=== PATIENT | female | born 1955 | race Caucasian/White ===

== ENCOUNTER → 2017-12-06 | Outpatient (CLI) | payer BC | LOC: M WUC 09:46 | DX: J44.1 Chronic obstructive pulmonary disease with (acute) exacerbation (principal) | CPT/HCPCS: 71046 ==

== ENCOUNTER 2018-03-01 11:26 | Inpatient (IN) | payer BC ==
[2018-03-01 12:15] LABS: ABG BASE EXCESS 2.9 (-2.0-2.0); ABG HCO3 28.2 MEQ/L (22.0-26.0); ABG O2 SATURATION 96.5 % (95.0-99.0); ABG PARTIAL PRESSURE CO2 45.3 mmHg (35.0-45.0); ABG PARTIAL PRESSURE O2 84.9 mmHg (75.0-100.0); ABG TOTAL CO2 29.6 MEQ/L (23.0-31.0); ABG pH (ARTERIAL) 7.412 UNITS (7.350-7.450)
[2018-03-01] MEDS: IPRATROPIUM 0.5MG/ALBUTEROL 2.5MG INH SOL UD 3ML (DUONEB)(J7620) NEB ×2 (12:15→19:55)
[2018-03-01] MEDS: ALBUTEROL SULFATE 2.5 MG/0.5 ML INH NEB SOLN INH ×2 (12:15→13:56)
[2018-03-01] MEDS: methylPREDNISolone INJ 125 MG/2 ML VIAL (J2930) IV ×2 (12:17→20:03)
[2018-03-01 12:36] LABS: BASO % 0.3 % (0.0-1.0); EOS % 0.1 % (0.0-3.0); HEMATOCRIT 47.4 % (36.0-47.0); HEMOGLOBIN 16.3 g/dl (12.0-15.5); IMMATURE GRANULOCYTE % 0.5 % (0-3.0); LYMPH # 1.1 10^3/uL (1.5-4.5); LYMPH % 11.4 % (24.0-44.0); MEAN CORPUSCULAR HEMOGLOBIN 29.9 pg (27.0-33.0); MEAN CORPUSCULAR HGB CONC 34.4 g/dl (32.0-36.5); MEAN CORPUSCULAR VOLUME 86.8 fl (80.0-96.0); MONO # 0.3 10^3/uL (0.0-0.8); MONO % 2.7 % (0.0-5.0); NEUTROPHILS # 8.2 10^3/uL (1.8-7.7); PLATELET COUNT, AUTOMATED 383 10^3/uL (150-450); RED BLOOD COUNT 5.46 10^6/uL (4.00-5.40); RED CELL DISTRIBUTION WIDTH 13.5 % (11.5-14.5); WHITE BLOOD COUNT 9.6 10^3/uL (4.0-10.0)
[2018-03-01 13:11] LABS: LACTIC ACID SEPSIS PROTOCOL 1.7 MMOL/L (0.4-2.0)
[2018-03-01 13:11] LABS: ALBUMIN 3.9 GM/DL (3.2-5.2); ALBUMIN/GLOBULIN RATIO 0.83 (1.00-1.93); ALKALINE PHOSPHATASE 64 U/L (45-117); ALT/SGPT 34 U/L (12-78); ANION GAP 7 MEQ/L (8-16); AST/SGOT 26 U/L (7-37); BILIRUBIN,DIRECT < 0.1 MG/DL (0.0-0.2); BILIRUBIN,TOTAL 0.3 MG/DL (0.2-1.0); BLOOD UREA NITROGEN 13 MG/DL (7-18); CALCIUM LEVEL 9.6 MG/DL (8.8-10.2); CARBON DIOXIDE LEVEL 30 MEQ/L (21-32); CHLORIDE LEVEL 99 MEQ/L (98-107); CPK CREATINE PHOSPHOKINASE 164 U/L (26-192); CREATININE FOR GFR 0.71 MG/DL (0.55-1.30); GLOMERULAR FILTRATION RATE > 60.0 (>45); GLUCOSE, FASTING 116 MG/DL (70-100); POTASSIUM SERUM 3.8 MEQ/L (3.5-5.1); SODIUM LEVEL 136 MEQ/L (136-145); TOTAL PROTEIN 8.6 GM/DL (6.4-8.2); TROPONIN I < 0.02 NG/ML (< 0.10)
[2018-03-01 13:16] LABS: CK-MB VALUE MASS 5.8 NG/ML (<3.6); MB/CK RELATIVE INDEX 3.53 (< OR =4); NT-PRO BNP 193 PG/ML (<125); THYROID STIMULATING HORMONE 0.717 uIU/ML (0.358-3.740)
[2018-03-01] MEDS ORDERED: ISOVUE-370 76% 100ML VIAL (Q9967) As Ordered (13:22)
[2018-03-01] MEDS ORDERED: BISACODYL 5 MG TAB PO (15:15)
[2018-03-01] MEDS: NS 1,000 ML IV (17:00)
[2018-03-01] MEDS: DOXYCYCLINE HYCLATE 100 MG in D5W MINI-BAG PLUS 100 ML IV (17:00)
[2018-03-01] MEDS: PANTOPRAZOLE 40MG TAB (PROTONIX) PO (17:02)
[2018-03-01] MEDS: ENOXAPARIN 40 MG/0.4 ML SYRINGE (J1650) SC (20:04)
[2018-03-01] MEDS ORDERED: NICOTINE 14 MG/24 HR TRANSDERMAL TD (20:30)
[2018-03-02] MEDS: IPRATROPIUM 0.5MG/ALBUTEROL 2.5MG INH SOL UD 3ML (DUONEB)(J7620) NEB ×2 (01:41→07:32)
[2018-03-02] MEDS: DOXYCYCLINE HYCLATE 100 MG in D5W MINI-BAG PLUS 100 ML IV ×2 (03:18→16:49)
[2018-03-02] MEDS: methylPREDNISolone INJ 125 MG/2 ML VIAL (J2930) IV ×4 (03:18→23:02)
[2018-03-02 05:30] LABS: INFLUENZA A AMPLIFICATION NEGATIVE (NEGATIVE); INFLUENZA B AMPLIFICATION NEGATIVE (NEGATIVE)
[2018-03-02 05:41] LABS: BASO % 0.1 % (0.0-1.0); HEMATOCRIT 40.1 % (36.0-47.0); IMMATURE GRANULOCYTE % 0.6 % (0-3.0); LYMPH # 0.9 10^3/uL (1.5-4.5); LYMPH % 13.3 % (24.0-44.0); MEAN CORPUSCULAR HEMOGLOBIN 29.5 pg (27.0-33.0); MEAN CORPUSCULAR HGB CONC 33.4 g/dl (32.0-36.5); MEAN CORPUSCULAR VOLUME 88.3 fl (80.0-96.0); MONO # 0.3 10^3/uL (0.0-0.8); MONO % 4.6 % (0.0-5.0); NEUTROPHILS # 5.7 10^3/uL (1.8-7.7); NEUTROPHILS % 81.4 % (36.0-66.0); PLATELET COUNT, AUTOMATED 320 10^3/uL (150-450); RED BLOOD COUNT 4.54 10^6/uL (4.00-5.40); RED CELL DISTRIBUTION WIDTH 13.6 % (11.5-14.5); WHITE BLOOD COUNT 6.9 10^3/uL (4.0-10.0)
[2018-03-02 05:45] LABS: HEMOGLOBIN 13.4 g/dl (12.0-15.5)
[2018-03-02 05:57] LABS: ANION GAP 6 MEQ/L (8-16); BLOOD UREA NITROGEN 13 MG/DL (7-18); CALCIUM LEVEL 8.3 MG/DL (8.8-10.2); CARBON DIOXIDE LEVEL 31 MEQ/L (21-32); CHLORIDE LEVEL 105 MEQ/L (98-107); CREATININE FOR GFR 0.61 MG/DL (0.55-1.30); GLOMERULAR FILTRATION RATE > 60.0 (>45); GLUCOSE, FASTING 151 MG/DL (70-100); POTASSIUM SERUM 4.2 MEQ/L (3.5-5.1); SODIUM LEVEL 142 MEQ/L (136-145)
[2018-03-02] MEDS: NICOTINE 14 MG/24 HR TRANSDERMAL TD (09:00)
[2018-03-02] MEDS: BUDESONIDE 180MCG INHALER (PULMICORT FLEXHALER) INH (09:00)
[2018-03-02] MEDS: PANTOPRAZOLE 40MG TAB (PROTONIX) PO (09:05)
[2018-03-02] MEDS: amLODIPine 10 MG TAB PO (09:05)
[2018-03-02] MEDS: HYDROXYCHLOROQUINE 200 MG TAB PO (09:05)
[2018-03-02] MEDS: ALBUTEROL SULFATE 2.5 MG/0.5 ML INH NEB SOLN NEB (09:47)
[2018-03-02] MEDS: CETIRIZINE (ZyrTEC) 10 MG TAB PO (11:30)
[2018-03-02] MEDS: guaiFENesin ER 600 MG TAB PO ×2 (11:59→21:01)
[2018-03-02] MEDS: NICOTINE POLACRILEX 2 MG GUM PO (12:00)
[2018-03-02] MEDS: ACETAMINOPHEN 500 MG TAB PO (12:00)
[2018-03-02] MEDS: ALPRAZolam 0.25 MG TAB PO ×2 (12:04→21:01)
[2018-03-02] MEDS: LEVALBUTEROL 1.25 MG/0.5 ML CONCENTRATE NEB INH ×5 (12:06→23:14)
[2018-03-02] MEDS: TIOTROPIUM INHALER/CAPSULE (SPIRIVA) INH (16:29)
[2018-03-02] MEDS: ENOXAPARIN 40 MG/0.4 ML SYRINGE (J1650) SC (21:01)
[2018-03-03] MEDS: BUDESONIDE 180MCG INHALER (PULMICORT FLEXHALER) INH ×3 (00:49→21:20)
[2018-03-03] MEDS: DOXYCYCLINE HYCLATE 100 MG in D5W MINI-BAG PLUS 100 ML IV ×2 (04:03→15:19)
[2018-03-03] MEDS: ALPRAZolam 0.25 MG TAB PO ×5 (04:05→20:09)
[2018-03-03] MEDS: LEVALBUTEROL 1.25 MG/0.5 ML CONCENTRATE NEB INH ×6 (04:29→23:30)
[2018-03-03] MEDS: methylPREDNISolone INJ 125 MG/2 ML VIAL (J2930) IV ×4 (05:27→23:12)
[2018-03-03] MEDS: TIOTROPIUM INHALER/CAPSULE (SPIRIVA) INH (07:53)
[2018-03-03 08:01] LABS: HEMATOCRIT 39.6 % (36.0-47.0); HEMOGLOBIN 13.4 g/dl (12.0-15.5); MEAN CORPUSCULAR HEMOGLOBIN 29.8 pg (27.0-33.0); MEAN CORPUSCULAR HGB CONC 33.8 g/dl (32.0-36.5); MEAN CORPUSCULAR VOLUME 88.2 fl (80.0-96.0); PLATELET COUNT, AUTOMATED 359 10^3/uL (150-450); RED BLOOD COUNT 4.49 10^6/uL (4.00-5.40); RED CELL DISTRIBUTION WIDTH 13.8 % (11.5-14.5); WHITE BLOOD COUNT 13.3 10^3/uL (4.0-10.0)
[2018-03-03 08:21] LABS: ANION GAP 6 MEQ/L (8-16); BLOOD UREA NITROGEN 20 MG/DL (7-18); CALCIUM LEVEL 8.8 MG/DL (8.8-10.2); CARBON DIOXIDE LEVEL 31 MEQ/L (21-32); CHLORIDE LEVEL 106 MEQ/L (98-107); CPK CREATINE PHOSPHOKINASE 157 U/L (26-192); CREATININE FOR GFR 0.67 MG/DL (0.55-1.30); GLOMERULAR FILTRATION RATE > 60.0 (>45); GLUCOSE, FASTING 131 MG/DL (70-100); POTASSIUM SERUM 4.2 MEQ/L (3.5-5.1); SODIUM LEVEL 143 MEQ/L (136-145); TROPONIN I < 0.02 NG/ML (< 0.10)
[2018-03-03 08:22] LABS: CK-MB VALUE MASS 7.2 NG/ML (<3.6); MB/CK RELATIVE INDEX 4.58 (< OR =4); NT-PRO BNP 325 PG/ML (<125)
[2018-03-03] MEDS: NICOTINE 14 MG/24 HR TRANSDERMAL TD (09:00)
[2018-03-03] MEDS: amLODIPine 10 MG TAB PO (09:00)
[2018-03-03] MEDS: PANTOPRAZOLE 40MG TAB (PROTONIX) PO (09:00)
[2018-03-03] MEDS: HYDROXYCHLOROQUINE 200 MG TAB PO (09:01)
[2018-03-03] MEDS: guaiFENesin ER 600 MG TAB PO ×2 (09:01→20:09)
[2018-03-03] MEDS: CETIRIZINE (ZyrTEC) 10 MG TAB PO (09:01)
[2018-03-03] MEDS: OXYMETAZOLINE NASAL SPRAY (AFRIN) ×2 (11:44→20:10)
[2018-03-03] MEDS: ENOXAPARIN 40 MG/0.4 ML SYRINGE (J1650) SC (20:09)
[2018-03-04] MEDS: ALPRAZolam 0.25 MG TAB PO ×3 (00:14→21:07)
[2018-03-04] MEDS: LEVALBUTEROL 1.25 MG/0.5 ML CONCENTRATE NEB INH ×5 (04:00→20:08)
[2018-03-04] MEDS: DOXYCYCLINE HYCLATE 100 MG in D5W MINI-BAG PLUS 100 ML IV (04:26)
[2018-03-04] MEDS: methylPREDNISolone INJ 125 MG/2 ML VIAL (J2930) IV ×4 (06:06→23:33)
[2018-03-04] MEDS: TIOTROPIUM INHALER/CAPSULE (SPIRIVA) INH (08:10)
[2018-03-04] MEDS: BUDESONIDE 180MCG INHALER (PULMICORT FLEXHALER) INH ×2 (08:11→20:13)
[2018-03-04] MEDS: PANTOPRAZOLE 40MG TAB (PROTONIX) PO (09:04)
[2018-03-04] MEDS: HYDROXYCHLOROQUINE 200 MG TAB PO (09:04)
[2018-03-04] MEDS: guaiFENesin ER 600 MG TAB PO ×2 (09:04→21:08)
[2018-03-04] MEDS: CETIRIZINE (ZyrTEC) 10 MG TAB PO (09:04)
[2018-03-04] MEDS: amLODIPine 10 MG TAB PO (09:04)
[2018-03-04] MEDS: NICOTINE 14 MG/24 HR TRANSDERMAL TD (09:05)
[2018-03-04] MEDS: OXYMETAZOLINE NASAL SPRAY (AFRIN) ×2 (09:06→21:09)
[2018-03-04] MEDS: ENOXAPARIN 40 MG/0.4 ML SYRINGE (J1650) SC (21:07)
[2018-03-04] MEDS: SODIUM CHLORIDE NASAL 0.65% SPRAY BTL (OCEAN) (21:08)
[2018-03-04] MEDS: DOXYCYCLINE HYCLATE 100 MG TAB PO (21:08)
[2018-03-05] MEDS: LEVALBUTEROL 1.25 MG/0.5 ML CONCENTRATE NEB INH ×7 (00:15→23:19)
[2018-03-05] MEDS: ALPRAZolam 0.25 MG TAB PO ×5 (01:10→20:46)
[2018-03-05] MEDS: methylPREDNISolone INJ 125 MG/2 ML VIAL (J2930) IV ×4 (05:06→20:05)
[2018-03-05] MEDS: TIOTROPIUM INHALER/CAPSULE (SPIRIVA) INH (08:07)
[2018-03-05] MEDS: BUDESONIDE 180MCG INHALER (PULMICORT FLEXHALER) INH ×2 (08:08→20:09)
[2018-03-05] MEDS: NICOTINE 14 MG/24 HR TRANSDERMAL TD (08:10)
[2018-03-05] MEDS: PANTOPRAZOLE 40MG TAB (PROTONIX) PO (08:12)
[2018-03-05] MEDS: amLODIPine 10 MG TAB PO (08:12)
[2018-03-05] MEDS: guaiFENesin ER 600 MG TAB PO ×2 (08:12→20:05)
[2018-03-05] MEDS: DOXYCYCLINE HYCLATE 100 MG TAB PO ×2 (08:13→20:05)
[2018-03-05] MEDS: CETIRIZINE (ZyrTEC) 10 MG TAB PO (08:13)
[2018-03-05] MEDS: LEVALBUTEROL 1.25 MG/0.5 ML CONCENTRATE NEB NEB (08:20)
[2018-03-05] MEDS: HYDROXYCHLOROQUINE 200 MG TAB PO (08:27)
[2018-03-05] MEDS: OXYMETAZOLINE NASAL SPRAY (AFRIN) ×2 (08:27→20:06)
[2018-03-05 08:54] LABS: NT-PRO BNP 287 PG/ML (<125)
[2018-03-05] MEDS: IPRATROPIUM 0.02% SOLN 0.5MG/2.5 ML NEB INH ×4 (11:47→23:19)
[2018-03-05] MEDS: ENOXAPARIN 40 MG/0.4 ML SYRINGE (J1650) SC (20:06)
[2018-03-05] MEDS: SODIUM CHLORIDE NASAL 0.65% SPRAY BTL (OCEAN) (20:06)
[2018-03-05] MEDS: ACETAMINOPHEN 500 MG TAB PO (23:21)
[2018-03-06] MEDS: methylPREDNISolone INJ 125 MG/2 ML VIAL (J2930) IV ×4 (01:47→20:38)
[2018-03-06] MEDS: IPRATROPIUM 0.02% SOLN 0.5MG/2.5 ML NEB INH ×6 (03:38→23:44)
[2018-03-06] MEDS: LEVALBUTEROL 1.25 MG/0.5 ML CONCENTRATE NEB INH ×7 (03:38→23:44)
[2018-03-06] MEDS: BUDESONIDE 180MCG INHALER (PULMICORT FLEXHALER) INH ×2 (07:44→21:25)
[2018-03-06] MEDS: TIOTROPIUM INHALER/CAPSULE (SPIRIVA) INH (07:55)
[2018-03-06] MEDS: CETIRIZINE (ZyrTEC) 10 MG TAB PO (09:01)
[2018-03-06] MEDS: NICOTINE 14 MG/24 HR TRANSDERMAL TD (09:01)
[2018-03-06] MEDS: guaiFENesin ER 600 MG TAB PO ×2 (09:01→20:39)
[2018-03-06] MEDS: amLODIPine 10 MG TAB PO (09:03)
[2018-03-06] MEDS: PANTOPRAZOLE 40MG TAB (PROTONIX) PO (09:04)
[2018-03-06] MEDS: DOXYCYCLINE HYCLATE 100 MG TAB PO ×2 (09:04→20:39)
[2018-03-06] MEDS: OXYMETAZOLINE NASAL SPRAY (AFRIN) ×2 (09:04→20:40)
[2018-03-06] MEDS: HYDROXYCHLOROQUINE 200 MG TAB PO (09:04)
[2018-03-06] MEDS: ALPRAZolam 0.25 MG TAB PO ×4 (09:19→22:02)
[2018-03-06 09:23] LABS: BASO # 0.1 10^3/uL (0.0-0.2); BASO % 0.5 % (0.0-1.0); HEMATOCRIT 46.1 % (36.0-47.0); HEMOGLOBIN 15.1 g/dl (12.0-15.5); IMMATURE GRANULOCYTE % 3.8 % (0-3.0); LYMPH % 6.8 % (24.0-44.0); MEAN CORPUSCULAR HGB CONC 32.8 g/dl (32.0-36.5); MEAN CORPUSCULAR VOLUME 91.7 fl (80.0-96.0); MONO # 0.8 10^3/uL (0.0-0.8); MONO % 5.3 % (0.0-5.0); NEUTROPHILS # 12.2 10^3/uL (1.8-7.7); NEUTROPHILS % 83.6 % (36.0-66.0); PLATELET COUNT, AUTOMATED 469 10^3/uL (150-450); RED BLOOD COUNT 5.03 10^6/uL (4.00-5.40); RED CELL DISTRIBUTION WIDTH 13.9 % (11.5-14.5); WHITE BLOOD COUNT 14.6 10^3/uL (4.0-10.0)
[2018-03-06 09:58] LABS: ANION GAP 5 MEQ/L (8-16); BLOOD UREA NITROGEN 22 MG/DL (7-18); CARBON DIOXIDE LEVEL 37 MEQ/L (21-32); CHLORIDE LEVEL 102 MEQ/L (98-107); CREATININE FOR GFR 0.66 MG/DL (0.55-1.30); GLOMERULAR FILTRATION RATE > 60.0 (>45); GLUCOSE, FASTING 134 MG/DL (70-100); POTASSIUM SERUM 4.6 MEQ/L (3.5-5.1); SODIUM LEVEL 144 MEQ/L (136-145)
[2018-03-06] MEDS: NICOTINE POLACRILEX 2 MG GUM PO (11:07)
[2018-03-06] MEDS: SODIUM CHLORIDE NASAL 0.65% SPRAY BTL (OCEAN) (20:39)
[2018-03-06] MEDS: ENOXAPARIN 40 MG/0.4 ML SYRINGE (J1650) SC (20:39)
[2018-03-07] MEDS: ALPRAZolam 0.25 MG TAB PO ×4 (02:12→20:26)
[2018-03-07] MEDS: methylPREDNISolone INJ 125 MG/2 ML VIAL (J2930) IV ×4 (02:12→20:19)
[2018-03-07] MEDS: LEVALBUTEROL 1.25 MG/0.5 ML CONCENTRATE NEB INH ×7 (02:18→21:46)
[2018-03-07] MEDS: IPRATROPIUM 0.02% SOLN 0.5MG/2.5 ML NEB INH ×7 (02:18→21:46)
[2018-03-07 06:14] LABS: BASO % 0.3 % (0.0-1.0); HEMATOCRIT 43.2 % (36.0-47.0); HEMOGLOBIN 14.2 g/dl (12.0-15.5); IMMATURE GRANULOCYTE % 2.9 % (0-3.0); LYMPH # 0.8 10^3/uL (1.5-4.5); LYMPH % 5.5 % (24.0-44.0); MEAN CORPUSCULAR HEMOGLOBIN 29.5 pg (27.0-33.0); MEAN CORPUSCULAR HGB CONC 32.9 g/dl (32.0-36.5); MEAN CORPUSCULAR VOLUME 89.6 fl (80.0-96.0); MONO # 0.6 10^3/uL (0.0-0.8); MONO % 4.1 % (0.0-5.0); NEUTROPHILS # 13.2 10^3/uL (1.8-7.7); NEUTROPHILS % 87.2 % (36.0-66.0); PLATELET COUNT, AUTOMATED 449 10^3/uL (150-450); RED BLOOD COUNT 4.82 10^6/uL (4.00-5.40); RED CELL DISTRIBUTION WIDTH 13.8 % (11.5-14.5); WHITE BLOOD COUNT 15.2 10^3/uL (4.0-10.0)
[2018-03-07] MEDS: BUDESONIDE 180MCG INHALER (PULMICORT FLEXHALER) INH ×2 (08:20→21:57)
[2018-03-07] MEDS: TIOTROPIUM INHALER/CAPSULE (SPIRIVA) INH (08:20)
[2018-03-07] MEDS: PANTOPRAZOLE 40MG TAB (PROTONIX) PO (09:32)
[2018-03-07] MEDS: guaiFENesin ER 600 MG TAB PO ×2 (09:32→20:19)
[2018-03-07] MEDS: amLODIPine 10 MG TAB PO (09:32)
[2018-03-07] MEDS: HYDROXYCHLOROQUINE 200 MG TAB PO (09:33)
[2018-03-07] MEDS: CETIRIZINE (ZyrTEC) 10 MG TAB PO (09:33)
[2018-03-07] MEDS: DOXYCYCLINE HYCLATE 100 MG TAB PO ×2 (09:33→20:19)
[2018-03-07] MEDS: OXYMETAZOLINE NASAL SPRAY (AFRIN) ×2 (09:34→20:20)
[2018-03-07] MEDS: NICOTINE 14 MG/24 HR TRANSDERMAL TD (09:35)
[2018-03-07] MEDS ORDERED: CHLORASEPTIC SPRAY MT (12:00)
[2018-03-07] MEDS: CEPACOL LOZENGE PO (14:10)
[2018-03-07] MEDS: ENOXAPARIN 40 MG/0.4 ML SYRINGE (J1650) SC (20:19)
[2018-03-08] MEDS: IPRATROPIUM 0.02% SOLN 0.5MG/2.5 ML NEB INH ×8 (00:06→22:40)
[2018-03-08] MEDS: LEVALBUTEROL 1.25 MG/0.5 ML CONCENTRATE NEB INH ×8 (00:06→22:40)
[2018-03-08] MEDS: methylPREDNISolone INJ 125 MG/2 ML VIAL (J2930) IV ×4 (01:13→20:09)
[2018-03-08] MEDS: ALPRAZolam 0.25 MG TAB PO ×2 (01:13→05:33)
[2018-03-08] MEDS: SODIUM CHLORIDE NASAL 0.65% SPRAY BTL (OCEAN) (02:13)
[2018-03-08 06:20] LABS: BASO # 0.1 10^3/uL (0.0-0.2); BASO % 0.3 % (0.0-1.0); HEMATOCRIT 42.4 % (36.0-47.0); IMMATURE GRANULOCYTE % 2.4 % (0-3.0); LYMPH # 0.8 10^3/uL (1.5-4.5); LYMPH % 3.8 % (24.0-44.0); MONO # 0.9 10^3/uL (0.0-0.8); MONO % 4.2 % (0.0-5.0); NEUTROPHILS # 18.3 10^3/uL (1.8-7.7); NEUTROPHILS % 89.3 % (36.0-66.0); PLATELET COUNT, AUTOMATED 424 10^3/uL (150-450); RED BLOOD COUNT 4.66 10^6/uL (4.00-5.40); RED CELL DISTRIBUTION WIDTH 13.8 % (11.5-14.5); WHITE BLOOD COUNT 20.5 10^3/uL (4.0-10.0)
[2018-03-08 08:05] LABS: ANION GAP 5 MEQ/L (8-16); BLOOD UREA NITROGEN 22 MG/DL (7-18); CALCIUM LEVEL 8.6 MG/DL (8.8-10.2); CARBON DIOXIDE LEVEL 37 MEQ/L (21-32); CHLORIDE LEVEL 103 MEQ/L (98-107); GLOMERULAR FILTRATION RATE > 60.0 (>45); GLUCOSE, FASTING 152 MG/DL (70-100); POTASSIUM SERUM 4.2 MEQ/L (3.5-5.1); SODIUM LEVEL 145 MEQ/L (136-145)
[2018-03-08] MEDS: TIOTROPIUM INHALER/CAPSULE (SPIRIVA) INH (08:13)
[2018-03-08] MEDS: ADVAIR HFA 230/21MCG INHALER INH ×2 (08:14→22:40)
[2018-03-08] MEDS: DOXYCYCLINE HYCLATE 100 MG TAB PO ×2 (09:14→20:09)
[2018-03-08] MEDS: amLODIPine 10 MG TAB PO (09:14)
[2018-03-08] MEDS: guaiFENesin ER 600 MG TAB PO ×2 (09:14→20:09)
[2018-03-08] MEDS: NICOTINE 14 MG/24 HR TRANSDERMAL TD (09:15)
[2018-03-08] MEDS: PANTOPRAZOLE 40MG TAB (PROTONIX) PO (09:15)
[2018-03-08] MEDS: OXYMETAZOLINE NASAL SPRAY (AFRIN) (09:15)
[2018-03-08] MEDS: HYDROXYCHLOROQUINE 200 MG TAB PO (09:15)
[2018-03-08] MEDS: CETIRIZINE (ZyrTEC) 10 MG TAB PO (09:15)
[2018-03-08] MEDS: LORazepam 0.5 MG TAB PO ×2 (10:02→20:09)
[2018-03-08] MEDS: NICOTINE POLACRILEX 2 MG GUM PO (18:41)
[2018-03-08] MEDS: ENOXAPARIN 40 MG/0.4 ML SYRINGE (J1650) SC (20:10)
[2018-03-08] MEDS: MIRALAX *UNIT DOSE* 17GM PACKET PO (21:42)
[2018-03-09] MEDS: methylPREDNISolone INJ 125 MG/2 ML VIAL (J2930) IV ×3 (01:13→19:59)
[2018-03-09] MEDS: IPRATROPIUM 0.02% SOLN 0.5MG/2.5 ML NEB INH (03:45)
[2018-03-09] MEDS: LEVALBUTEROL 1.25 MG/0.5 ML CONCENTRATE NEB INH (03:46)
[2018-03-09] MEDS: LORazepam 0.5 MG TAB PO ×2 (04:19→19:59)
[2018-03-09 06:10] LABS: BASO # 0.1 10^3/uL (0.0-0.2); BASO % 0.2 % (0.0-1.0); HEMATOCRIT 40.6 % (36.0-47.0); HEMOGLOBIN 13.6 g/dl (12.0-15.5); IMMATURE GRANULOCYTE % 2.4 % (0-3.0); LYMPH # 0.7 10^3/uL (1.5-4.5); MEAN CORPUSCULAR HGB CONC 33.5 g/dl (32.0-36.5); MEAN CORPUSCULAR VOLUME 89.6 fl (80.0-96.0); MONO # 1.1 10^3/uL (0.0-0.8); MONO % 4.8 % (0.0-5.0); NEUTROPHILS # 19.8 10^3/uL (1.8-7.7); NEUTROPHILS % 89.6 % (36.0-66.0); PLATELET COUNT, AUTOMATED 370 10^3/uL (150-450); RED BLOOD COUNT 4.53 10^6/uL (4.00-5.40); RED CELL DISTRIBUTION WIDTH 13.6 % (11.5-14.5); WHITE BLOOD COUNT 22.1 10^3/uL (4.0-10.0)
[2018-03-09 06:35] LABS: ANION GAP 6 MEQ/L (8-16); BLOOD UREA NITROGEN 24 MG/DL (7-18); CALCIUM LEVEL 8.6 MG/DL (8.8-10.2); CARBON DIOXIDE LEVEL 37 MEQ/L (21-32); CHLORIDE LEVEL 101 MEQ/L (98-107); CREATININE FOR GFR 0.52 MG/DL (0.55-1.30); GLOMERULAR FILTRATION RATE > 60.0 (>45); GLUCOSE, FASTING 143 MG/DL (70-100); POTASSIUM SERUM 4.1 MEQ/L (3.5-5.1); SODIUM LEVEL 144 MEQ/L (136-145)
[2018-03-09] MEDS: PANTOPRAZOLE 40MG TAB (PROTONIX) PO (08:17)
[2018-03-09] MEDS: NICOTINE 14 MG/24 HR TRANSDERMAL TD (08:17)
[2018-03-09] MEDS: guaiFENesin ER 600 MG TAB PO ×2 (08:17→19:58)
[2018-03-09] MEDS: MIRALAX *UNIT DOSE* 17GM PACKET PO (08:17)
[2018-03-09] MEDS: CETIRIZINE (ZyrTEC) 10 MG TAB PO (08:17)
[2018-03-09] MEDS: HYDROXYCHLOROQUINE 200 MG TAB PO (08:18)
[2018-03-09] MEDS: amLODIPine 10 MG TAB PO (08:18)
[2018-03-09] MEDS: DOXYCYCLINE HYCLATE 100 MG TAB PO (08:18)
[2018-03-09] MEDS: ADVAIR HFA 230/21MCG INHALER INH ×2 (10:07→19:45)
[2018-03-09] MEDS: TIOTROPIUM INHALER/CAPSULE (SPIRIVA) INH (10:08)
[2018-03-09 10:22] LABS: ABG BASE EXCESS 10.5 (-2.0-2.0); ABG HCO3 35.6 MEQ/L (22.0-26.0); ABG O2 SATURATION 95.6 % (95.0-99.0); ABG PARTIAL PRESSURE CO2 48.7 mmHg (35.0-45.0); ABG PARTIAL PRESSURE O2 73.6 mmHg (75.0-100.0); ABG STANDARD HCO3 34.2 MEQ/L (22.0-26.0); ABG TOTAL CO2 37.1 MEQ/L (23.0-31.0); ABG pH (ARTERIAL) 7.482 UNITS (7.350-7.450)
[2018-03-09] MEDS: IPRATROPIUM 0.5MG/ALBUTEROL 2.5MG INH SOL UD 3ML (DUONEB)(J7620) NEB ×3 (13:54→19:43)
[2018-03-09] MEDS: NICOTINE POLACRILEX 2 MG GUM PO (14:57)
[2018-03-09] MEDS: ENOXAPARIN 40 MG/0.4 ML SYRINGE (J1650) SC (19:59)
[2018-03-10 00:06] LABS: M003-IGE ASPERGILLUS fumigatus <0.10 kU/L (Class 0)
[2018-03-10] MEDS: IPRATROPIUM 0.5MG/ALBUTEROL 2.5MG INH SOL UD 3ML (DUONEB)(J7620) NEB ×4 (01:08→20:00)
[2018-03-10] MEDS: ACETAMINOPHEN 500 MG TAB PO (01:42)
[2018-03-10 06:19] LABS: BASO % 0.2 % (0.0-1.0); HEMATOCRIT 40.4 % (36.0-47.0); HEMOGLOBIN 13.2 g/dl (12.0-15.5); IMMATURE GRANULOCYTE % 2.8 % (0-3.0); LYMPH % 4.5 % (24.0-44.0); MEAN CORPUSCULAR HEMOGLOBIN 29.1 pg (27.0-33.0); MEAN CORPUSCULAR HGB CONC 32.7 g/dl (32.0-36.5); MEAN CORPUSCULAR VOLUME 89.2 fl (80.0-96.0); MONO # 1.5 10^3/uL (0.0-0.8); MONO % 6.9 % (0.0-5.0); NEUTROPHILS # 18.9 10^3/uL (1.8-7.7); NEUTROPHILS % 85.6 % (36.0-66.0); PLATELET COUNT, AUTOMATED 369 10^3/uL (150-450); RED BLOOD COUNT 4.53 10^6/uL (4.00-5.40); RED CELL DISTRIBUTION WIDTH 13.8 % (11.5-14.5); WHITE BLOOD COUNT 22.1 10^3/uL (4.0-10.0)
[2018-03-10 06:34] LABS: ANION GAP 6 MEQ/L (8-16); BLOOD UREA NITROGEN 19 MG/DL (7-18); CALCIUM LEVEL 8.3 MG/DL (8.8-10.2); CARBON DIOXIDE LEVEL 38 MEQ/L (21-32); CHLORIDE LEVEL 99 MEQ/L (98-107); CREATININE FOR GFR 0.57 MG/DL (0.55-1.30); GLOMERULAR FILTRATION RATE > 60.0 (>45); GLUCOSE, FASTING 130 MG/DL (70-100); POTASSIUM SERUM 4.3 MEQ/L (3.5-5.1); SODIUM LEVEL 143 MEQ/L (136-145)
[2018-03-10] MEDS: TIOTROPIUM INHALER/CAPSULE (SPIRIVA) INH (07:44)
[2018-03-10] MEDS: ADVAIR HFA 230/21MCG INHALER INH ×2 (07:45→20:53)
[2018-03-10] MEDS: PANTOPRAZOLE 40MG TAB (PROTONIX) PO (08:35)
[2018-03-10] MEDS: HYDROXYCHLOROQUINE 200 MG TAB PO (08:35)
[2018-03-10] MEDS: predniSONE 20 MG TAB PO ×2 (08:36→20:57)
[2018-03-10] MEDS: guaiFENesin ER 600 MG TAB PO ×2 (08:36→20:57)
[2018-03-10] MEDS: amLODIPine 10 MG TAB PO (08:36)
[2018-03-10] MEDS: MIRALAX *UNIT DOSE* 17GM PACKET PO (08:36)
[2018-03-10] MEDS: CETIRIZINE (ZyrTEC) 10 MG TAB PO (08:36)
[2018-03-10] MEDS: NICOTINE 14 MG/24 HR TRANSDERMAL TD (08:36)
[2018-03-10] MEDS: NICOTINE POLACRILEX 2 MG GUM PO ×2 (08:59→12:38)
[2018-03-10] MEDS: LORazepam 0.5 MG TAB PO ×2 (11:13→20:58)
[2018-03-10] MEDS: LEVALBUTEROL 1.25 MG/0.5 ML CONCENTRATE NEB INH (15:31)
[2018-03-10] MEDS: ENOXAPARIN 40 MG/0.4 ML SYRINGE (J1650) SC (20:57)
[2018-03-10] MEDS ORDERED: NYSTATIN 500,000 U/5 ML SUSP UDC PO (22:45)
[2018-03-11] MEDS: IPRATROPIUM 0.5MG/ALBUTEROL 2.5MG INH SOL UD 3ML (DUONEB)(J7620) NEB ×4 (01:19→19:38)
[2018-03-11 06:03] LABS: ANION GAP 7 MEQ/L (8-16); BLOOD UREA NITROGEN 17 MG/DL (7-18); CALCIUM LEVEL 8.3 MG/DL (8.8-10.2); CARBON DIOXIDE LEVEL 33 MEQ/L (21-32); CHLORIDE LEVEL 100 MEQ/L (98-107); CREATININE FOR GFR 0.49 MG/DL (0.55-1.30); GLOMERULAR FILTRATION RATE > 60.0 (>45); GLUCOSE, FASTING 143 MG/DL (70-100); POTASSIUM SERUM 4.8 MEQ/L (3.5-5.1); SODIUM LEVEL 140 MEQ/L (136-145)
[2018-03-11 06:06] LABS: BASO % 0.2 % (0.0-1.0); EOS % 0.1 % (0.0-3.0); HEMOGLOBIN 13.4 g/dl (12.0-15.5); LYMPH # 0.9 10^3/uL (1.5-4.5); LYMPH % 4.5 % (24.0-44.0); MEAN CORPUSCULAR HEMOGLOBIN 29.7 pg (27.0-33.0); MEAN CORPUSCULAR HGB CONC 33.5 g/dl (32.0-36.5); MEAN CORPUSCULAR VOLUME 88.7 fl (80.0-96.0); MONO # 0.7 10^3/uL (0.0-0.8); MONO % 3.4 % (0.0-5.0); NEUTROPHILS # 17.6 10^3/uL (1.8-7.7); NEUTROPHILS % 89.8 % (36.0-66.0); PLATELET COUNT, AUTOMATED 287 10^3/uL (150-450); RED BLOOD COUNT 4.51 10^6/uL (4.00-5.40); RED CELL DISTRIBUTION WIDTH 13.7 % (11.5-14.5); WHITE BLOOD COUNT 19.6 10^3/uL (4.0-10.0)
[2018-03-11] MEDS: TIOTROPIUM INHALER/CAPSULE (SPIRIVA) INH (08:11)
[2018-03-11] MEDS: ADVAIR HFA 230/21MCG INHALER INH ×2 (08:11→20:28)
[2018-03-11] MEDS: guaiFENesin ER 600 MG TAB PO ×2 (08:45→20:17)
[2018-03-11] MEDS: predniSONE 20 MG TAB PO ×2 (08:45→20:17)
[2018-03-11] MEDS: CETIRIZINE (ZyrTEC) 10 MG TAB PO (08:45)
[2018-03-11] MEDS: amLODIPine 10 MG TAB PO (08:45)
[2018-03-11] MEDS: HYDROXYCHLOROQUINE 200 MG TAB PO (08:45)
[2018-03-11] MEDS: PANTOPRAZOLE 40MG TAB (PROTONIX) PO (08:45)
[2018-03-11] MEDS: NICOTINE 14 MG/24 HR TRANSDERMAL TD (08:46)
[2018-03-11] MEDS: MIRALAX *UNIT DOSE* 17GM PACKET PO ×2 (08:46→20:18)
[2018-03-11] MEDS: NYSTATIN 500,000 U/5 ML SUSP UDC SS ×4 (09:54→20:18)
[2018-03-11] MEDS: NICOTINE POLACRILEX 2 MG GUM PO ×2 (09:54→13:07)
[2018-03-11] MEDS: LORazepam 0.5 MG TAB PO (14:28)
[2018-03-11] MEDS: FUROSEMIDE 40 MG TAB PO (14:58)
[2018-03-11] MEDS: ENOXAPARIN 40 MG/0.4 ML SYRINGE (J1650) SC (20:18)
[2018-03-12] MEDS: IPRATROPIUM 0.5MG/ALBUTEROL 2.5MG INH SOL UD 3ML (DUONEB)(J7620) NEB ×4 (02:23→21:57)
[2018-03-12 06:22] LABS: ANION GAP 4 MEQ/L (8-16); BLOOD UREA NITROGEN 19 MG/DL (7-18); CALCIUM LEVEL 8.1 MG/DL (8.8-10.2); CARBON DIOXIDE LEVEL 38 MEQ/L (21-32); CHLORIDE LEVEL 101 MEQ/L (98-107); GLOMERULAR FILTRATION RATE > 60.0 (>45); GLUCOSE, FASTING 161 MG/DL (70-100); POTASSIUM SERUM 4.2 MEQ/L (3.5-5.1); SODIUM LEVEL 143 MEQ/L (136-145)
[2018-03-12] MEDS: ADVAIR HFA 230/21MCG INHALER INH ×2 (08:30→21:57)
[2018-03-12] MEDS: TIOTROPIUM INHALER/CAPSULE (SPIRIVA) INH (08:30)
[2018-03-12] MEDS: NYSTATIN 500,000 U/5 ML SUSP UDC SS ×4 (08:30→21:18)
[2018-03-12] MEDS: amLODIPine 10 MG TAB PO (08:31)
[2018-03-12] MEDS: NICOTINE 14 MG/24 HR TRANSDERMAL TD (08:31)
[2018-03-12] MEDS: guaiFENesin ER 600 MG TAB PO ×2 (08:32→21:18)
[2018-03-12] MEDS: CETIRIZINE (ZyrTEC) 10 MG TAB PO (08:32)
[2018-03-12] MEDS: FUROSEMIDE 40 MG TAB PO (08:32)
[2018-03-12] MEDS: HYDROXYCHLOROQUINE 200 MG TAB PO (08:32)
[2018-03-12] MEDS: PANTOPRAZOLE 40MG TAB (PROTONIX) PO (08:32)
[2018-03-12] MEDS: predniSONE 20 MG TAB PO (08:32)
[2018-03-12] MEDS: MIRALAX *UNIT DOSE* 17GM PACKET PO (09:04)
[2018-03-12] MEDS: NICOTINE POLACRILEX 2 MG GUM PO ×2 (10:10→14:59)
[2018-03-12] MEDS: ALPRAZolam 0.25 MG TAB PO (21:19)
[2018-03-12] MEDS: ENOXAPARIN 40 MG/0.4 ML SYRINGE (J1650) SC (21:19)
[2018-03-13] MEDS: ACETAMINOPHEN 500 MG TAB PO (01:07)
[2018-03-13] MEDS: IPRATROPIUM 0.5MG/ALBUTEROL 2.5MG INH SOL UD 3ML (DUONEB)(J7620) NEB ×3 (02:40→11:00)
[2018-03-13] MEDS: ALPRAZolam 0.25 MG TAB PO (05:06)
[2018-03-13 06:49] LABS: BASO # 0.1 10^3/uL (0.0-0.2); BASO % 0.2 % (0.0-1.0); EOS # 0.1 10^3/uL (0.0-0.50); EOS % 0.6 % (0.0-3.0); HEMATOCRIT 36.7 % (36.0-47.0); HEMOGLOBIN 12.3 g/dl (12.0-15.5); IMMATURE GRANULOCYTE % 2.2 % (0-3.0); LYMPH # 3.7 10^3/uL (1.5-4.5); LYMPH % 18.6 % (24.0-44.0); MEAN CORPUSCULAR HEMOGLOBIN 29.6 pg (27.0-33.0); MEAN CORPUSCULAR HGB CONC 33.5 g/dl (32.0-36.5); MEAN CORPUSCULAR VOLUME 88.2 fl (80.0-96.0); MONO # 1.8 10^3/uL (0.0-0.8); MONO % 9.2 % (0.0-5.0); NEUTROPHILS # 13.8 10^3/uL (1.8-7.7); NEUTROPHILS % 69.2 % (36.0-66.0); PLATELET COUNT, AUTOMATED 273 10^3/uL (150-450); RED BLOOD COUNT 4.16 10^6/uL (4.00-5.40); RED CELL DISTRIBUTION WIDTH 13.6 % (11.5-14.5)
[2018-03-13 07:06] LABS: ANION GAP 2 MEQ/L (8-16); BLOOD UREA NITROGEN 19 MG/DL (7-18); CALCIUM LEVEL 7.9 MG/DL (8.8-10.2); CARBON DIOXIDE LEVEL 39 MEQ/L (21-32); CHLORIDE LEVEL 101 MEQ/L (98-107); CREATININE FOR GFR 0.56 MG/DL (0.55-1.30); GLOMERULAR FILTRATION RATE > 60.0 (>45); GLUCOSE, FASTING 90 MG/DL (70-100); POTASSIUM SERUM 3.5 MEQ/L (3.5-5.1); SODIUM LEVEL 142 MEQ/L (136-145)
[2018-03-13] MEDS: TIOTROPIUM INHALER/CAPSULE (SPIRIVA) INH (08:00)
[2018-03-13] MEDS ORDERED: ALPRAZolam 0.25 MG TAB PO (08:30)
[2018-03-13] MEDS: ADVAIR HFA 230/21MCG INHALER INH (08:57)
[2018-03-13] MEDS: predniSONE 20 MG TAB PO (09:48)
[2018-03-13] MEDS: guaiFENesin ER 600 MG TAB PO (09:48)
[2018-03-13] MEDS: amLODIPine 10 MG TAB PO (09:49)
[2018-03-13] MEDS: NICOTINE POLACRILEX 2 MG GUM PO (09:49)
[2018-03-13] MEDS: NYSTATIN 500,000 U/5 ML SUSP UDC SS (09:49)
[2018-03-13] MEDS: PANTOPRAZOLE 40MG TAB (PROTONIX) PO (09:49)
[2018-03-13] MEDS: NICOTINE 14 MG/24 HR TRANSDERMAL TD (09:49)
[2018-03-13] MEDS: CETIRIZINE (ZyrTEC) 10 MG TAB PO (09:49)
[2018-03-13] MEDS: HYDROXYCHLOROQUINE 200 MG TAB PO (09:49)
[2018-03-13] MEDS: FUROSEMIDE 40 MG TAB PO (09:49)
== END 2018-03-13 11:20 | disposition home or self-care (01) | DRG 140 ==
LOC: M PED 03-12 16:02 → M ED 11:26 → M ED INP 15:02 → M MSPAV 16:44
DX: J44.1 Chronic obstructive pulmonary disease with (acute) exacerbation (principal); J96.01 Acute respiratory failure with hypoxia; I27.20 Pulmonary hypertension, unspecified; I11.0 Hypertensive heart disease with heart failure; I50.32 Chronic diastolic (congestive) heart failure; L94.8 Other specified localized connective tissue disorders; J32.9 Chronic sinusitis, unspecified; R19.7 Diarrhea, unspecified; F17.200 Nicotine dependence, unspecified, uncomplicated; I73.00 Raynaud's syndrome without gangrene; Z85.038 Personal history of other malignant neoplasm of large intestine; J02.9 Acute pharyngitis, unspecified; Z79.899 Other long term (current) drug therapy; Z79.52 Long term (current) use of systemic steroids

== ENCOUNTER → 2018-05-18 | Outpatient (CLI) | payer BC | LOC: M PLARAD 11:14 | DX: R91.1 Solitary pulmonary nodule (principal); Z85.038 Personal history of other malignant neoplasm of large intestine | CPT/HCPCS: 78815 ==

== ENCOUNTER → 2018-05-24 | Outpatient (REF) | payer BC ==
[2018-05-24 13:59] LABS: PLATELET COUNT, AUTOMATED 432 10^3/uL (150-450)
[2018-05-24 14:12] LABS: INR 0.88
[2018-05-24 14:13] LABS: PARTIAL THROMBOPLASTIN TIME 31.6 SECONDS (25.4-37.6)
== END ==
LOC: M LAB REF 13:24
DX: R91.8 Other nonspecific abnormal finding of lung field (principal)
CPT/HCPCS: 85049

== ENCOUNTER → 2018-05-31 | Outpatient (CLI) | payer BC ==
[~2018-05-31] MED LIST: FLUMAZENIL 0.5 MG/5 ML VIAL As Ordered; LIDOCAINE 1% MDV 20ML VIAL As Ordered; MIDAZOLAM INJ 2 MG/2 ML VIAL (J2250) As Ordered
== END ==
LOC: M RADPRO 09:37
DX: R91.8 Other nonspecific abnormal finding of lung field (principal); J95.811 Postprocedural pneumothorax
CPT/HCPCS: 32405

== ENCOUNTER → 2018-06-01 | Outpatient (CLI) | payer BC | LOC: M RAD 12:31 | DX: J93.83 Other pneumothorax (principal) | CPT/HCPCS: 71045 ==

== ENCOUNTER → 2018-11-24 | Outpatient (CLI) | payer OTHER ==
[~2018-11-24] MED LIST changes: +ADV250INH INH; +ADVA230A INH; +ALBU83IN INH; +ALPR0.25 PO; +AMLO10TA5 PO; +AZIT-12 PO; +BREO1INH INH; -FLUMAZENIL 0.5 MG/5 ML VIAL As Ordered; +FURO40TA2 PO; +HYDR200T3 PO; +INCR1INH INH; +IPRA0.00 NEB; +LEVO500T PO; -LIDOCAINE 1% MDV 20ML VIAL As Ordered; -MIDAZOLAM INJ 2 MG/2 ML VIAL (J2250) As Ordered; +MUCI600T37 PO; +NICO21PAT EXT; +NYST50SS SS; +PANT40TA3 PO; +PERC5TAB PO; +PRED10TA2 PO; +PRED1TAB32 PO; +PRED20TA PO; +PROAAER IN; +TIOT18INH INH; +VENTAER INH
[2018-11-24 14:46] LABS: BASO # 0.1 10^3/uL (0.0-0.2); BASO % 0.8 % (0.0-1.0); EOS # 0.1 10^3/uL (0.0-0.50); HEMATOCRIT 41.7 % (36.0-47.0); HEMOGLOBIN 14.3 g/dl (12.0-15.5); LYMPH # 3.3 10^3/uL (1.5-4.5); LYMPH % 22.4 % (24.0-44.0); MEAN CORPUSCULAR HEMOGLOBIN 30.3 pg (27.0-33.0); MEAN CORPUSCULAR HGB CONC 34.3 g/dl (32.0-36.5); MEAN CORPUSCULAR VOLUME 88.3 fl (80.0-96.0); MONO # 1.3 10^3/uL (0.0-0.8); NEUTROPHILS # 9.7 10^3/uL (1.8-7.7); NEUTROPHILS % 66.1 % (36.0-66.0); PLATELET COUNT, AUTOMATED 376 10^3/uL (150-450); RED BLOOD COUNT 4.72 10^6/uL (4.00-5.40); WHITE BLOOD COUNT 14.6 10^3/uL (4.0-10.0)
[2018-11-24 14:47] LABS: APPEARANCE, URINE CLEAR (CLEAR); BACTERIA, URINE AUTO 1+ (NEGATIVE); BILIRUBIN, URINE AUTO NEGATIVE (NEGATIVE); BLOOD, URINE BLOOD NEGATIVE (NEGATIVE); COLOR, URINE YELLOW (YELLOW); GLUCOSE, URINE (UA) AUTO NEGATIVE (NEGATIVE); KETONE, URINE AUTO NEGATIVE (NEGATIVE); LEUKOCYTE ESTERASE, URINE AUTO NEGATIVE (NEGATIVE); NITRITE, URINE AUTO NEGATIVE (NEGATIVE); PROTEIN, URINE AUTO NEGATIVE (NEGATIVE); RBC, URINE AUTO 0 /HPF (0-3); SPECIFIC GRAVITY URINE AUTO 1.005 (1.002-1.035); SQUAMOUS EPITHELIAL CELL UR AU 0 /HPF (0-6); UROBILINOGEN, URINE AUTO 0.2 mg/dL (0.0-2.0); WBC, URINE AUTO 0 /HPF (0-3)
[2018-11-24 14:50] LABS: CREATININE,RANDOM URINE 18.4 MG/DL; TOTAL PROTEIN,RANDOM URINE < 5.0 MG/DL (0.0-12.0)
[2018-11-24 15:15] LABS: ALBUMIN 3.5 GM/DL (3.2-5.2); ALT/SGPT 35 U/L (12-78); BILIRUBIN,TOTAL 0.4 MG/DL (0.2-1.0); BLOOD UREA NITROGEN 18 MG/DL (7-18); C REACTIVE PROTEIN QUANTITATIV < 0.30 MG/DL (0.00-0.30); CALCIUM LEVEL 9.3 MG/DL (8.8-10.2); CARBON DIOXIDE LEVEL 30 MEQ/L (21-32); CHLORIDE LEVEL 101 MEQ/L (98-107); CHOLESTEROL LEVEL 239 MG/DL (< 200); COMPLEMENT C3 92 MG/DL (90-180); COMPLEMENT C4 17 MG/DL (10-40); CPK CREATINE PHOSPHOKINASE 124 U/L (26-192); CREATININE FOR GFR 0.71 MG/DL (0.55-1.30); GLOMERULAR FILTRATION RATE > 60.0 (>45); GLUCOSE, FASTING 125 MG/DL (70-100); LDH LACTATE DEHYDROGENASE 208 U/L (84-246); PHOSPHORUS LEVEL 2.6 MG/DL (2.5-4.9); POTASSIUM SERUM 4.3 MEQ/L (3.5-5.1); RHEUMATOID FACTOR QUANT 22.5 IU/ML (<15.0); SODIUM LEVEL 137 MEQ/L (136-145); TOTAL PROTEIN 7.1 GM/DL (6.4-8.2); TRIGLYCERIDES LEVEL 70 MG/DL (<150)
[2018-11-24 15:23] LABS: TOTAL 25(OH) VITAMIN D 34.2 NG/ML (30.0-100.0)
[2018-11-24 15:30] LABS: ERYTHROCYTE SEDIMENTATION RATE 5 mm/hr (0-30)
--- NOTE | 2018-11-25 17:38 | REP ---
Clinical: Inflammatory arthropathy. Technique: AP, lateral, bilateral oblique views of the right and left hand. Findings: Left hand demonstrates moderate swan-neck deformity involving the fifth digit. Associated moderate subchondral sclerosis with marginal spurring and joint space narrowing involving the fifth interphalangeal joints is appreciated. Advanced degenerative changes involving the first metacarpophalangeal and interphalangeal joint include subchondral sclerosis with marginal spurring and joint space narrowing. Second through fourth digits demonstrate mild subchondral sclerosis and joint space narrowing at the interphalangeal joints. No significant periarticular erosive changes, loose bodies, or focal swelling is appreciated. Right hand demonstrates moderate medial deviation at the second through fifth metacarpophalangeal joints as well as mild/moderate swan-neck deformity involving the fifth digit. Early advanced degenerative changes at the fifth metacarpophalangeal and interphalangeal joint include subchondral sclerosis, joint space narrowing, and marginal spurring. The second through fourth interphalangeal joints demonstrate mild joint space narrowing. No significant periarticular erosive changes, loose bodies, or focal swelling is appreciated. Impression: Bilateral primarily osteoarthritic degenerative changes as noted above. Electronically Signed by Beltran Pan MD 11/25/2018 05:29 P
--- NOTE | 2018-11-25 17:41 | REP ---
Clinical: Inflammatory arthropathy. Technique: AP, lateral, bilateral oblique and sunrise views of the right and left knee. Findings: Moderate tricompartmental osteoarthritic degenerative changes are appreciated bilaterally (left greater than right) findings include subchondral sclerosis/ heterogeneity involving the tibial plateau as with subtle cortical irregularity and mild early spurring. No acute fracture dislocation. No effusion. No significant periarticular erosive or lytic changes and no obvious loose bodies identified. Impression: Moderate bilateral osteoarthritic degenerative changes (left greater than right) Electronically Signed by Beltran Pan MD 11/25/2018 05:32 P
--- NOTE | 2018-11-25 17:46 | REP ---
Clinical: Inflammatory arthropathy. Technique: Single AP weightbearing view of the right and left knee. Findings: Moderate degenerative changes include subchondral sclerosis and heterogeneity (left greater than right). Mild right medial joint space narrowing is suggested and should be correlated clinically. Impression: Moderate arthritic changes as described above. Electronically Signed by Beltran Pan MD 11/25/2018 05:35 P
[2018-11-29 14:12] LABS: ANA (HEP2) Positive (.); ANGIOTENSIN 1 CONVERTING ENZYM 51 U/L (14-82); ANTI DOUBLE STRAND-DNA AB <1 IU/mL (0-9); CYCLIC CITRULLINATED PEPTIDE 4 units (0-19); RNP ANTIBODY > 8.0 AI (0.0-0.9); SMITHS ANTIBODY 0.7 AI (0.0-0.9); SSA SJOGRENS A <0.2 AI (0.0-0.9); SSB SJOGRENS B <0.2 AI (0.0-0.9); VITAMIN D 1,25 DIHYDROXY 46.2 pg/mL (19.9-79.3)
== END ==
LOC: M LAB 13:34
PROVIDERS: ATTEND Internal Medicine Rheumatology
DX: M19.042 Primary osteoarthritis, left hand (principal); M19.041 Primary osteoarthritis, right hand; M17.0 Bilateral primary osteoarthritis of knee

== ENCOUNTER → 2018-11-24 | Outpatient (REF) | payer OTHER ==
[2018-11-24 14:52] LABS: BODY FLUID RHEUMATOID SCREEN NEGATIVE (NEGATIVE); MUCIN CLOT TEST 4+ (4+)
[2018-11-24 15:03] LABS: URIC ACID, BODY FLUID 4.5 MG/DL (NOT ESTABLISHED)
[2018-11-24 15:39] LABS: SOURCE, BODY FLUID OTHER
[2018-11-24 15:40] LABS: SYNOVIAL FLUID COLOR ORANGE (YELLOW)
[2018-11-24 15:48] LABS: CRYSTALS, BODY FLUID NONE SEEN (NONE SEEN)
== END ==
LOC: M SFHCPLAZ 11:50
PROVIDERS: ATTEND Internal Medicine Rheumatology
DX: M19.90 Unspecified osteoarthritis, unspecified site (principal)

== ENCOUNTER → 2018-12-07 | Outpatient (REF) | payer OTHER ==
[~2018-12-07] MED LIST changes: +NICO21DI3 EXT; -NICO21PAT EXT
[2018-12-07 13:37] LABS: BODY FLUID RHEUMATOID SCREEN NEGATIVE (NEGATIVE)
[2018-12-07 13:40] LABS: MUCIN CLOT TEST 4+ (4+)
[2018-12-07 13:57] LABS: CRYSTALS, BODY FLUID NONE SEEN (NONE SEEN); SOURCE, BODY FLUID CRYSTALS RT KNEE
[2018-12-07 14:03] LABS: SOURCE, BODY FLUID GLUCOSE RT KNEE; SOURCE, BODY FLUID URIC ACID RT KNEE; URIC ACID, BODY FLUID 5.1 MG/DL (NOT ESTABLISHED)
[2018-12-07 15:07] LABS: HEPATITIS B SURFACE ANTIBODY NEGATIVE (POSITIVE); HEPATITIS B SURFACE ANTIGEN NEGATIVE (NEGATIVE); HEPATITIS C VIRUS ABY INDEX 0.1 INDEX (<0.8); HIV 1&2 SCREEN CENTAUR NEGATIVE (NEGATIVE)
[2018-12-07 17:08] LABS: SOURCE, BODY FLUID RT KNEE; SYNOVIAL FLUID COLOR YELLOW (YELLOW)
== END ==
LOC: M SFHCPLAZ 11:38
PROVIDERS: ATTEND Internal Medicine Rheumatology
DX: Z51.81 Encounter for therapeutic drug level monitoring (principal); Z79.899 Other long term (current) drug therapy; M19.90 Unspecified osteoarthritis, unspecified site

== ENCOUNTER → 2019-01-11 | Outpatient (REF) | payer OTHER ==
[2019-01-11 10:45] LABS: BASO # 0.1 10^3/uL (0.0-0.2); BASO % 1.1 % (0.0-1.0); EOS # 0.1 10^3/uL (0.0-0.50); EOS % 1.3 % (0.0-3.0); HEMOGLOBIN 13.9 g/dl (12.0-15.5); LYMPH % 20.9 % (24.0-44.0); MEAN CORPUSCULAR HEMOGLOBIN 29.6 pg (27.0-33.0); MEAN CORPUSCULAR HGB CONC 33.1 g/dl (32.0-36.5); MEAN CORPUSCULAR VOLUME 89.6 fl (80.0-96.0); MONO # 1.3 10^3/uL (0.0-0.8); MONO % 13.6 % (0.0-5.0); NEUTROPHILS # 6.1 10^3/uL (1.8-7.7); NEUTROPHILS % 62.1 % (36.0-66.0); PLATELET COUNT, AUTOMATED 395 10^3/uL (150-450); RED BLOOD COUNT 4.69 10^6/uL (4.00-5.40); WHITE BLOOD COUNT 9.8 10^3/uL (4.0-10.0)
[2019-01-11 11:18] LABS: ALBUMIN 3.5 GM/DL (3.2-5.2); ALT/SGPT 26 U/L (12-78); BILIRUBIN,TOTAL 0.2 MG/DL (0.2-1.0); BLOOD UREA NITROGEN 8 MG/DL (7-18); C REACTIVE PROTEIN QUANTITATIV 0.41 MG/DL (0.00-0.30); CARBON DIOXIDE LEVEL 29 MEQ/L (21-32); CHLORIDE LEVEL 104 MEQ/L (98-107); GLOMERULAR FILTRATION RATE > 60.0 (>45); GLUCOSE, FASTING 90 MG/DL (70-100); POTASSIUM SERUM 4.7 MEQ/L (3.5-5.1); SODIUM LEVEL 138 MEQ/L (136-145); TOTAL PROTEIN 7.2 GM/DL (6.4-8.2)
[2019-01-11 11:30] LABS: ERYTHROCYTE SEDIMENTATION RATE 13 mm/hr (0-30)
== END ==
LOC: M SFHCPLAZ 08:26
PROVIDERS: ATTEND Internal Medicine Rheumatology
DX: M19.90 Unspecified osteoarthritis, unspecified site (principal)

== ENCOUNTER → 2019-02-06 | Outpatient (REF) | payer OTHER ==
[~2019-02-06] MED LIST changes: +FOLI1TAB11 PO; +GUAI600T12 PO; +METH2.5T48 PO; +PLAQ200T4 PO
[2019-02-06 19:46] LABS: BASO # 0.1 10^3/uL (0.0-0.2); BASO % 1.1 % (0.0-1.0); EOS # 0.1 10^3/uL (0.0-0.50); EOS % 1.3 % (0.0-3.0); HEMATOCRIT 38.4 % (36.0-47.0); HEMOGLOBIN 12.7 g/dl (12.0-15.5); LYMPH # 2.2 10^3/uL (1.5-4.5); LYMPH % 26.6 % (24.0-44.0); MEAN CORPUSCULAR HEMOGLOBIN 29.6 pg (27.0-33.0); MEAN CORPUSCULAR HGB CONC 33.1 g/dl (32.0-36.5); MEAN CORPUSCULAR VOLUME 89.5 fl (80.0-96.0); MONO # 1.3 10^3/uL (0.0-0.8); MONO % 15.2 % (0.0-5.0); NEUTROPHILS # 4.6 10^3/uL (1.8-7.7); NEUTROPHILS % 55.3 % (36.0-66.0); PLATELET COUNT, AUTOMATED 377 10^3/uL (150-450); RED BLOOD COUNT 4.29 10^6/uL (4.00-5.40); WHITE BLOOD COUNT 8.3 10^3/uL (4.0-10.0)
[2019-02-06 19:48] LABS: ALBUMIN 3.6 GM/DL (3.2-5.2); ALT/SGPT 25 U/L (12-78); BILIRUBIN,TOTAL 0.3 MG/DL (0.2-1.0); BLOOD UREA NITROGEN 15 MG/DL (7-18); CALCIUM LEVEL 9.2 MG/DL (8.8-10.2); CARBON DIOXIDE LEVEL 30 MEQ/L (21-32); CHLORIDE LEVEL 103 MEQ/L (98-107); CREATININE FOR GFR 0.78 MG/DL (0.55-1.30); GLOMERULAR FILTRATION RATE > 60.0 (>45); GLUCOSE, FASTING 84 MG/DL (70-100); POTASSIUM SERUM 4.1 MEQ/L (3.5-5.1); SODIUM LEVEL 140 MEQ/L (136-145); TOTAL PROTEIN 7.4 GM/DL (6.4-8.2)
== END ==
LOC: M SFHCPLAZ 15:51
PROVIDERS: ATTEND Internal Medicine Rheumatology
DX: M05.79 Rheumatoid arthritis with rheumatoid factor of multiple sites without organ or systems involvement (principal)

== ENCOUNTER 2019-02-08 06:17 | Day surgery (SDC) | payer OTHER ==
[~2019-02-08] VITALS: Ht 154.9 cm; Wt 49.4 kg
[~2019-02-08 06:17] MED LIST changes: +ACETAMINOPHEN 325 MG TAB PO PRN
[2019-02-08] MEDS ORDERED: CEFUROXIME 1MG/0.1ML INTRACAMERAL INJ As Ordered ONE (06:40)
[2019-02-08] MEDS ORDERED: POVIDONE-IODINE 5% OPHTH PREP SOL 30ML As Ordered ONE (06:40)
[2019-02-08] MEDS ORDERED: BALANCED SALT IRRIGATION SOLUTION 500ML BAG (FOR OR EYE MACHINE) As Ordered ONE (06:40)
[2019-02-08] MEDS ORDERED: LIDOCAINE 1% SDV 5 ML VIAL As Ordered ONE (06:40)
[2019-02-08] MEDS ORDERED: HEALON DUET PRO(HEALON 10MG/ML 0.55ML & HEALON ENDOCOAT 30MG/ML 0.85ML) As Ordered ONE (06:41)
[2019-02-08] MEDS ORDERED: fentaNYL 100 MCG/2 ML INJECTION (J3010) As Ordered ONE (06:44)
[2019-02-08] MEDS ORDERED: MIDAZOLAM INJ 2 MG/2 ML VIAL (J2250) As Ordered ONE (06:45)
[2019-02-08] MEDS ORDERED: TROPICAMIDE 1% OPHTH SOLN 2ML OS ONE (07:00)
[2019-02-08] MEDS ORDERED: LIDOCAINE 3.5 % 1ML OPHTH TOPICAL GEL OU ONE (07:00)
[2019-02-08] MEDS ORDERED: CYCLOPENTOLATE 2% OPHTH SOLN 2ML BTL OS ONE (07:00)
[2019-02-08] MEDS ORDERED: PHENYLEPHRINE HCL 10 % OPHTH. SOL 5ML OS PRN (07:00)
[2019-02-08] MEDS ORDERED: PHENYLEPHRINE 2.5% OPHTH SOL 2ML OS ONE (07:00)
[2019-02-08] MEDS ORDERED: OFLOXACIN 0.3 % (OCUFLOX) OPTH SOL 5ML OS ONE (07:00)
[2019-02-08] MEDS ORDERED: PROPARACAINE 0.5% OPHTH SOL 15ML OS PRN (07:01)
[2019-02-08] MEDS ORDERED: TRIMETHOBENZAMIDE 300 MG CAP PO PRN (08:45)
[2019-02-08] MEDS ORDERED: KETOROLAC 0.5% OPHTH SOLN OS ONE (08:45)
[2019-02-08] MEDS ORDERED: AcetaZOLAMIDE 500 MG ER CAP PO ONE (08:45)
[2019-02-08 08:50] VITALS: BP 129/60
--- NOTE | 2019-02-08 09:46 | RO ---
DATE OF PROCEDURE: 02/08/2019 PREOPERATIVE DIAGNOSIS: Age-related nuclear cataract left eye. POSTOPERATIVE DIAGNOSIS: Age-related nuclear cataract left eye. PROCEDURE PERFORMED: Phacoemulsification with posterior chamber intraocular lens implantation with use of Optiwave refractory analysis (ORA). Lens used was an AU00T0, 21.0 diopters. SURGEON: Nyasia Chester MD ROUGH ROUNDER MACHINE: ANESTHESIA: Topical sedation. DESCRIPTION OF PROCEDURE: The patient was prepped and draped in usual fashion. A lid speculum was placed between the lids. The eye was fixated. A stab incision was made into the anterior chamber. 1% nonpreserved lidocaine was instilled, and viscoelastic was instilled. The eye was refixated. A 2.4 mm keratome was used to make a clear corneal temporal limbal incision. Capsulorrhexis was begun with a cystotome and carried out in circular fashion with capsulorrhexis forceps. Lens was hydrodissected and the phacoemulsification unit used to groove the nucleus in two meridians. The nucleus was cracked into four quadrants. Each quadrant was removed with the phacoemulsification unit. Any remaining cortex was removed with the irrigation and aspiration (I and A) unit. Healon was instilled into the eye, and the pressure was checked with a handheld tonometer. The ORA unit was placed over the eye and focused on the apex of the cornea. The patient was properly aligned, and measurements were made. The measurements then gave an appropriate lens power, which was used. The intraocular lens was placed into its virtualization consultant and injected into the eye. Then manipulation was used to center the lens. Any remaining viscoelastic was removed with the I and A unit. The wound was hydrated, and Miochol and cefuroxime were instilled. Patient tolerated procedure well and went to recovery room in stable condition.
== END 2019-02-08 09:10 | disposition home or self-care (01) ==
LOC: M SDC 06:17
PROVIDERS: ATTEND Ophthalmology
DX: H25.12 Age-related nuclear cataract, left eye (principal); I10 Essential (primary) hypertension; J44.9 Chronic obstructive pulmonary disease, unspecified; Z87.891 Personal history of nicotine dependence; Z79.51 Long term (current) use of inhaled steroids; Z79.899 Other long term (current) drug therapy
CPT/HCPCS: 66984; 92015; J2250; J3010; V2632

== ENCOUNTER → 2019-07-25 | Outpatient (CLI) | payer OTHER ==
[~2019-07-25] MED LIST changes: -ACETAMINOPHEN 325 MG TAB PO PRN
[2019-07-25 18:27] LABS: BLOOD UREA NITROGEN 14 MG/DL (7-18); CALCIUM LEVEL 9.7 MG/DL (8.8-10.2); CARBON DIOXIDE LEVEL 29 MEQ/L (21-32); CHLORIDE LEVEL 104 MEQ/L (98-107); CREATININE FOR GFR 0.78 MG/DL (0.55-1.30); GLOMERULAR FILTRATION RATE > 60.0 (>45); GLUCOSE, FASTING 91 MG/DL (70-100); POTASSIUM SERUM 4.6 MEQ/L (3.5-5.1); SODIUM LEVEL 140 MEQ/L (136-145)
[2019-07-25 18:28] LABS: ALBUMIN 3.8 GM/DL (3.2-5.2); ALT/SGPT 29 U/L (12-78); BILIRUBIN,TOTAL 0.6 MG/DL (0.2-1.0); CHOLESTEROL LEVEL 262 MG/DL (<200); CHOLESTEROL RISK RATIO 1.884 (<5); HDL CHOLESTEROL 139 MG/DL (>40); LDL CHOLESTEROL 112 MG/DL (<100); NON-HDL-C 123 MG/DL; TOTAL PROTEIN 7.6 GM/DL (6.4-8.2); TRIGLYCERIDES LEVEL 55 MG/DL (<150)
== END ==
LOC: M WUC 11:20
PROVIDERS: ATTEND Internal Medicine
DX: I10 Essential (primary) hypertension (principal); E78.5 Hyperlipidemia, unspecified; J44.1 Chronic obstructive pulmonary disease with (acute) exacerbation

== ENCOUNTER → 2020-04-27 | Outpatient (CLI) | payer OTHER ==
[~2020-04-27] MED LIST changes: -AMLO10TA5 PO; +AMLO1TAB25 PO; +PANT40TA29 PO; -PANT40TA3 PO
== END ==
LOC: M LABSMTC 08:18
PROVIDERS: ATTEND Anesthesiology
DX: Z01.812 Encounter for preprocedural laboratory examination (principal); Z20.828 Contact with and (suspected) exposure to other viral communicable diseases

== ENCOUNTER 2020-05-02 07:25 | Day surgery (SDC) | payer OTHER ==
[~2020-05-02] VITALS: Ht 152.4 cm; Wt 46.7 kg
[~2020-05-02 07:25] MED LIST changes: +NS 1,000 ML IV ONE
[2020-05-02] MEDS ORDERED: propofoL 200 MG/20 ML VIAL As Ordered ONE (07:55)
[2020-05-02] MEDS ORDERED: LIDOCAINE 2% 100MG/5ML SDV (FOR ANES.) As Ordered ONE (07:55)
[2020-05-02] MEDS ORDERED: ALBUTEROL SULFATE 2.5 MG/0.5 ML INH NEB SOLN As Ordered ONE (08:03)
[2020-05-02] MEDS ORDERED: ALBUTEROL SULFATE 2.5 MG/0.5 ML INH NEB SOLN INH ONE (08:15)
[2020-05-02] MEDS ORDERED: ePHEDrine SULFATE 25 MG/5 ML(5MG/ML) SYRINGE As Ordered ONE (08:32)
[2020-05-02 09:10] VITALS: BP 133/64
--- NOTE | 2020-05-15 11:36 | ROOR ---
Patient Name: Vivian Linares Procedure Date: 05/02/2020 7:39 AM Date of : 1955 Age: 65 Room: [facility] Gender: Female Note Status: Finalized Procedure: Colonoscopy Indications: High risk colon cancer surveillance: Personal history of colon cancer Providers: Emiliano Dover Jr, MD Referring MD: BENITA DUNN MD Requesting Provider: Medicines: Propofol per Anesthesia Complications: No immediate complications. Procedure: Pre-Anesthesia Assessment: - Prior to the procedure, a History and Physical was performed, and patient medications and allergies were reviewed. The patient is competent. The risks and benefits of the procedure and the sedation options and risks were discussed with the patient. All questions were answered and informed consent was obtained. Patient identification and proposed procedure were verified by the physician and the nurse in the pre-procedure area and in the procedure room. Mental Status Examination: alert and oriented. Airway Examination: normal oropharyngeal airway and neck mobility. Respiratory Examination: clear to auscultation. CV Examination: normal. ASA Grade Assessment: II - A patient with mild systemic disease. After reviewing the risks and benefits, the patient was deemed in satisfactory condition to undergo the procedure. The anesthesia plan was to use moderate sedation / analgesia (conscious sedation). Immediately prior to administration of medications, the patient was re-assessed for adequacy to receive sedatives. The heart rate, respiratory rate, oxygen saturations, blood pressure, adequacy of pulmonary ventilation, and response to care were monitored throughout the procedure. The physical status of the patient was re-assessed after the procedure. The Colonoscope was introduced through the anus and advanced to the cecum, identified by appendiceal orifice and ileocecal valve. The colonoscopy was performed with moderate difficulty due to a redundant colon. Successful completion of the procedure was aided by using manual pressure. Findings: The rectum, recto-sigmoid colon, descending colon, transverse colon, ascending colon, cecum, appendiceal orifice and ileocecal valve appeared normal. Non-bleeding external and internal hemorrhoids were found during endoscopy. The hemorrhoids were moderate. Multiple small and large-mouthed diverticula were found in the sigmoid colon and descending colon. Impression: - The rectum, recto-sigmoid colon, descending colon, transverse colon, ascending colon, cecum, appendiceal orifice and ileocecal valve are normal. - Non-bleeding external and internal hemorrhoids. - Diverticulosis in the sigmoid colon and in the descending colon. - No specimens collected. Recommendation: - Discharge patient to home (ambulatory). - Repeat colonoscopy in 3 - 5 years for surveillance. Emiliano Dover Jr, MD 05/02/2020 8:45:18 AM Number of Addenda: 0 Note Initiated On: 05/02/2020 7:39 AM Estimated Blood Loss: Estimated blood loss: none.
== END 2020-05-02 09:20 | disposition home or self-care (01) ==
LOC: M OPP 07:25
PROVIDERS: ATTEND Surgery
DX: Z12.11 Encounter for screening for malignant neoplasm of colon (principal); Z85.038 Personal history of other malignant neoplasm of large intestine; K64.8 Other hemorrhoids; K57.30 Diverticulosis of large intestine without perforation or abscess without bleeding; I10 Essential (primary) hypertension; J44.9 Chronic obstructive pulmonary disease, unspecified; F17.210 Nicotine dependence, cigarettes, uncomplicated; Z79.899 Other long term (current) drug therapy

== ENCOUNTER → 2020-11-29 | Outpatient (CLI) | payer OTHER ==
[~2020-11-29] MED LIST changes: -NS 1,000 ML IV ONE
--- NOTE | 2020-11-29 16:28 | REP ---
INDICATION: ABN FINDINGS OF LUNG FIELD. COMPARISON: Chest CT studies dated 02/21/2020 and 06/27/2018. TECHNIQUE: Chest CT without IV contrast. FINDINGS: On 02/21/2020 there was a new spiculated nodular density in the right upper lobe measuring 8 mm. This nodule is no longer present on the study today, possibly representing transient atelectasis. On 06/27/2018 there was a spiculated nodule in the left lower lobe again identified on 02/21/2020. It is unchanged in size on the study today. On 06/27/2018 there was a spiculated nodular density in the right lower lobe. This has decreased in size and 02/21/2020 and is similar in size today to 02/21/2020, compatible with parenchymal scarring. Our study today there is a new 6 mm nodule in the left lower lobe anterior segment on image 65. I would recommend 6 month follow-up CT for further evaluation of this new lung nodule. IMPRESSION: There is a new 6 mm left lower lobe lung nodule on image 65. I would recommend 6 month follow-up chest CT for this nodule. All the other lung nodules are either stable or have decreased in size. <Electronically signed by Zion Beckman > 11/29/20 [id number]
== END ==
LOC: M RAD 12:33
PROVIDERS: ATTEND Internal Medicine Pulmonary Disease
DX: R91.8 Other nonspecific abnormal finding of lung field (principal)

== ENCOUNTER → 2022-10-26 | Outpatient (CLI) | payer BC, OTHER, MEDICARE ==
[~2022-10-26] MED LIST changes: +ALBU2.5V10 INH; -ALBU83IN INH; +NYST-38 SS; -NYST50SS SS
[2022-10-26 18:58] LABS: BASO # 0.1 10^3/uL (0.0-0.2); BASO % 0.8 % (0.0-1.0); EOS # 0.1 10^3/uL (0.0-0.5); EOS % 0.4 % (0.0-3.0); HEMATOCRIT 39.9 % (36.0-47.0); HEMOGLOBIN 13.3 g/dl (12.0-15.5); LYMPH # 2.1 10^3/uL (1.5-5.0); LYMPH % 18.3 % (24.0-44.0); MEAN CORPUSCULAR HGB CONC 33.3 g/dl (32.0-36.5); MEAN CORPUSCULAR VOLUME 90.1 fl (80.0-96.0); MONO # 1.1 10^3/uL (0.0-0.8); MONO % 9.6 % (2.0-8.0); NEUTROPHILS % 70.4 % (36.0-66.0); PLATELET COUNT, AUTOMATED 339 10^3/uL (150-450); RED BLOOD COUNT 4.43 10^6/uL (4.00-5.40); WHITE BLOOD COUNT 11.4 10^3/uL (4.0-10.0)
[2022-10-26 19:19] LABS: FREE T4 1.23 NG/DL (0.89-1.76); THYROID STIMULATING HORMONE 0.895 uIU/ML (0.55-4.78); TOTAL 25(OH) VITAMIN D 43.5 NG/ML (20.0-100.0); VITAMIN B12 LEVEL 788 PG/ML (211-911)
[2022-10-26 19:27] LABS: TOTAL IRON BINDING CAPACITY 309 UG/DL (250-425)
[2022-10-26 19:28] LABS: ALBUMIN 3.9 G/DL (3.2-5.2); ALKALINE PHOSPHATASE 49 U/L (46-116); ALT/SGPT 37 U/L (7.0-40); AST/SGOT 39 U/L (<34); BILIRUBIN,TOTAL 0.4 MG/DL (0.3-1.2); BLOOD UREA NITROGEN 12 MG/DL (9-23); CALCIUM LEVEL 9.3 MG/DL (8.3-10.6); CARBON DIOXIDE LEVEL 25 MMOL/L (20-31); CHLORIDE LEVEL 101 MMOL/L (98-107); CHOLESTEROL LEVEL 268 MG/DL (<200); CHOLESTEROL RISK RATIO 2.02 (<5); CREATININE FOR GFR 0.64 MG/DL (0.55-1.30); GLOMERULAR FILTRATION RATE > 60.0 (>45); GLUCOSE, FASTING 107 MG/DL (74-106); HDL CHOLESTEROL 132.2 MG/DL (>40); IRON (FE) 37 UG/DL (50-170); NON-HDL-C 136 MG/DL; POTASSIUM SERUM 4.3 MMOL/L (3.5-5.1); SODIUM LEVEL 137 MMOL/L (136-145); TOTAL PROTEIN 7.3 G/DL (5.7-8.2); TRIGLYCERIDES LEVEL 54 MG/DL (<150)
[2022-10-26 19:29] LABS: FOLATE > 24.00 NG/ML (>5.4)
== END ==
LOC: M PLALAB 14:35
PROVIDERS: ATTEND Nurse Practitioner Adult Health
DX: J44.9 Chronic obstructive pulmonary disease, unspecified (principal); I10 Essential (primary) hypertension; D50.9 Iron deficiency anemia, unspecified; M81.0 Age-related osteoporosis without current pathological fracture; Z13.220 Encounter for screening for lipoid disorders

== ENCOUNTER → 2022-11-11 | Outpatient (CLI) | payer MEDICARE ==
[2022-11-11 17:20] LABS: BASO # 0.1 10^3/uL (0.0-0.2); BASO % 1.3 % (0.0-1.0); EOS # 0.2 10^3/uL (0.0-0.5); EOS % 1.5 % (0.0-3.0); HEMOGLOBIN 13.7 g/dl (12.0-15.5); LYMPH % 30.2 % (24.0-44.0); MEAN CORPUSCULAR HEMOGLOBIN 29.6 pg (27.0-33.0); MEAN CORPUSCULAR HGB CONC 32.6 g/dl (32.0-36.5); MEAN CORPUSCULAR VOLUME 90.7 fl (80.0-96.0); MONO # 1.2 10^3/uL (0.0-0.8); MONO % 11.6 % (2.0-8.0); NEUTROPHILS # 5.5 10^3/uL (1.5-8.5); NEUTROPHILS % 55.1 % (36.0-66.0); PLATELET COUNT, AUTOMATED 393 10^3/uL (150-450); RED BLOOD COUNT 4.63 10^6/uL (4.00-5.40)
[2022-11-11 17:53] LABS: C REACTIVE PROTEIN QUANTITATIV < 0.40 MG/DL (<1.0)
[2022-11-11 17:54] LABS: RHEUMATOID FACTOR QUANT 16.4 IU/ML (<14)
[2022-11-11 17:56] LABS: ERYTHROCYTE SEDIMENTATION RATE 19 mm/hr (0-30)
[2022-11-11 17:57] LABS: ALBUMIN 3.9 G/DL (3.2-5.2); ALKALINE PHOSPHATASE 49 U/L (46-116); ALT/SGPT 31 U/L (7.0-40); AST/SGOT 28 U/L (<34); BILIRUBIN,TOTAL 0.7 MG/DL (0.3-1.2); BLOOD UREA NITROGEN 12 MG/DL (9-23); CALCIUM LEVEL 9.4 MG/DL (8.3-10.6); CARBON DIOXIDE LEVEL 28 MMOL/L (20-31); CHLORIDE LEVEL 102 MMOL/L (98-107); CREATININE FOR GFR 0.71 MG/DL (0.55-1.30); GLOMERULAR FILTRATION RATE > 60.0 (>45); GLUCOSE, FASTING 90 MG/DL (74-106); POTASSIUM SERUM 4.2 MMOL/L (3.5-5.1); SODIUM LEVEL 139 MMOL/L (136-145); TOTAL PROTEIN 7.2 G/DL (5.7-8.2)
[2022-11-13 23:08] LABS: ANA (HEP2) Positive (.); CYCLIC CITRULLINATED PEPTIDE 1 units (0-19)
== END ==
LOC: M PLALAB 13:53
PROVIDERS: ATTEND Nurse Practitioner Adult Health
DX: M81.0 Age-related osteoporosis without current pathological fracture (principal)

== ENCOUNTER → 2022-11-13 | Outpatient (CLI) | payer MEDICAID, MEDICARE | LOC: M WHC 13:07 | PROVIDERS: ATTEND Nurse Practitioner Adult Health | DX: R01.1 Cardiac murmur, unspecified (principal); I65.23 Occlusion and stenosis of bilateral carotid arteries ==

== ENCOUNTER → 2023-01-05 | Outpatient (CLI) | payer MEDICARE | LOC: M PLAIMG 12:46 | PROVIDERS: ATTEND Internal Medicine Pulmonary Disease | DX: R91.8 Other nonspecific abnormal finding of lung field (principal); J43.9 Emphysema, unspecified; J47.9 Bronchiectasis, uncomplicated; I70.0 Atherosclerosis of aorta; I25.10 Atherosclerotic heart disease of native coronary artery without angina pectoris ==

== ENCOUNTER → 2023-03-24 | Outpatient (CLI) | payer MEDICARE ==
[~2023-03-24] MED LIST changes: -HYDR200T3 PO; +HYDR200T46 PO
[2023-03-24 17:09] LABS: BASO # 0.1 10^3/uL (0.0-0.2); EOS # 0.1 10^3/uL (0.0-0.5); HEMATOCRIT 39.3 % (36.0-47.0); HEMOGLOBIN 13.5 g/dl (12.0-15.5); LYMPH # 2.1 10^3/uL (1.5-5.0); LYMPH % 18.3 % (24.0-44.0); MEAN CORPUSCULAR HEMOGLOBIN 30.2 pg (27.0-33.0); MEAN CORPUSCULAR HGB CONC 34.4 g/dl (32.0-36.5); MEAN CORPUSCULAR VOLUME 87.9 fl (80.0-96.0); MONO # 1.4 10^3/uL (0.0-0.8); MONO % 12.1 % (2.0-8.0); NEUTROPHILS # 7.8 10^3/uL (1.5-8.5); NEUTROPHILS % 67.2 % (36.0-66.0); PLATELET COUNT, AUTOMATED 325 10^3/uL (150-450); RED BLOOD COUNT 4.47 10^6/uL (4.00-5.40); WHITE BLOOD COUNT 11.7 10^3/uL (4.0-10.0)
[2023-03-24 17:28] LABS: ALBUMIN 3.9 G/DL (3.2-5.2); ALKALINE PHOSPHATASE 72 U/L (46-116); ALT/SGPT 41 U/L (7.0-40); AST/SGOT 36 U/L (<34); BILIRUBIN,TOTAL 0.7 MG/DL (0.3-1.2); BLOOD UREA NITROGEN 11 MG/DL (9-23); CALCIUM LEVEL 9.5 MG/DL (8.3-10.6); CARBON DIOXIDE LEVEL 26 MMOL/L (20-31); CHLORIDE LEVEL 93 MMOL/L (98-107); CHOLESTEROL LEVEL 208 MG/DL (<200); CREATININE FOR GFR 0.61 MG/DL (0.55-1.30); GLOMERULAR FILTRATION RATE > 60.0 (>45); GLUCOSE, FASTING 91 MG/DL (74-106); HDL CHOLESTEROL 121.7 MG/DL (>40); LDL CHOLESTEROL 77.1 MG/DL (<100); NON-HDL-C 86.3 MG/DL; POTASSIUM SERUM 3.9 MMOL/L (3.5-5.1); SODIUM LEVEL 128 MMOL/L (136-145); TOTAL PROTEIN 7.1 G/DL (5.7-8.2); TRIGLYCERIDES LEVEL 46 MG/DL (<150)
[2023-03-24 17:29] LABS: FREE T4 1.38 NG/DL (0.89-1.76)
[2023-03-24 17:30] LABS: THYROID STIMULATING HORMONE 1.041 uIU/ML (0.55-4.78)
== END ==
LOC: M PLALAB 13:37
PROVIDERS: ATTEND Nurse Practitioner Adult Health
DX: M54.50 Low back pain, unspecified (principal); M25.551 Pain in right hip; J44.9 Chronic obstructive pulmonary disease, unspecified; I10 Essential (primary) hypertension; E78.2 Mixed hyperlipidemia

== ENCOUNTER → 2023-03-24 | Outpatient (CLI) | payer MEDICARE | LOC: M WHC 12:37 | PROVIDERS: ATTEND Nurse Practitioner Adult Health | DX: Z12.31 Encounter for screening mammogram for malignant neoplasm of breast (principal); M85.89 Other specified disorders of bone density and structure, multiple sites; J44.9 Chronic obstructive pulmonary disease, unspecified; I10 Essential (primary) hypertension; E78.2 Mixed hyperlipidemia; R92.8 Other abnormal and inconclusive findings on diagnostic imaging of breast ==

== ENCOUNTER → 2023-04-13 | Outpatient (CLI) | payer MEDICARE | LOC: M WHC 10:30 | PROVIDERS: ATTEND Nurse Practitioner Adult Health | DX: R92.2 Inconclusive mammogram (principal); E87.1 Hypo-osmolality and hyponatremia; Z80.41 Family history of malignant neoplasm of ovary; N63.12 Unspecified lump in the right breast, upper inner quadrant | CPT/HCPCS: 36415; 76642; 77065; 80048; G0279 ==

== ENCOUNTER → 2023-04-13 | Outpatient (CLI) | payer MEDICARE ==
[2023-04-13 14:34] LABS: BLOOD UREA NITROGEN 13 MG/DL (9-23); CALCIUM LEVEL 9.9 MG/DL (8.3-10.6); CARBON DIOXIDE LEVEL 27 MMOL/L (20-31); CHLORIDE LEVEL 102 MMOL/L (98-107); GLOMERULAR FILTRATION RATE > 60.0 (>45); GLUCOSE, FASTING 113 MG/DL (74-106); POTASSIUM SERUM 3.7 MMOL/L (3.5-5.1); SODIUM LEVEL 140 MMOL/L (136-145)
== END ==
LOC: M PLALAB 10:37
PROVIDERS: ATTEND Nurse Practitioner Adult Health
DX: E87.1 Hypo-osmolality and hyponatremia (principal)

== ENCOUNTER → 2023-04-14 | Outpatient (CLI) | payer MEDICARE | LOC: M CARPUL 10:00 | PROVIDERS: ATTEND Nurse Practitioner Adult Health | DX: I49.9 Cardiac arrhythmia, unspecified (principal); I35.8 Other nonrheumatic aortic valve disorders ==

== ENCOUNTER → 2023-04-21 | Outpatient (CLI) | payer MEDICARE, MEDICAID ==
[2023-04-21 15:15] LABS: APPEARANCE, URINE CLEAR (CLEAR); BACTERIA, URINE AUTO NEGATIVE (NEGATIVE); BILIRUBIN, URINE AUTO NEGATIVE (NEGATIVE); BLOOD, URINE BLOOD NEGATIVE (NEGATIVE); COLOR, URINE STRAW (YELLOW); GLUCOSE, URINE (UA) AUTO NEGATIVE (NEGATIVE); KETONE, URINE AUTO NEGATIVE (NEGATIVE); LEUKOCYTE ESTERASE, URINE AUTO NEGATIVE (NEGATIVE); NITRITE, URINE AUTO NEGATIVE (NEGATIVE); PROTEIN, URINE AUTO NEGATIVE (NEGATIVE); RBC, URINE AUTO 0 /HPF (0-3); SPECIFIC GRAVITY URINE AUTO 1.003 (1.002-1.035); SQUAMOUS EPITHELIAL CELL UR AU 0 /HPF (0-6); UROBILINOGEN, URINE AUTO 0.2 mg/dL (0.0-2.0); WBC, URINE AUTO 0 /HPF (0-3)
[2023-04-21 15:16] LABS: BASO # 0.1 10^3/uL (0.0-0.2); EOS # 0.2 10^3/uL (0.0-0.5); EOS % 1.6 % (0.0-3.0); HEMATOCRIT 42.4 % (36.0-47.0); HEMOGLOBIN 13.8 g/dl (12.0-15.5); LYMPH # 2.5 10^3/uL (1.5-5.0); LYMPH % 23.8 % (24.0-44.0); MEAN CORPUSCULAR HEMOGLOBIN 29.4 pg (27.0-33.0); MEAN CORPUSCULAR HGB CONC 32.5 g/dl (32.0-36.5); MEAN CORPUSCULAR VOLUME 90.2 fl (80.0-96.0); MONO # 1.3 10^3/uL (0.0-0.8); MONO % 12.4 % (2.0-8.0); NEUTROPHILS # 6.4 10^3/uL (1.5-8.5); NEUTROPHILS % 60.8 % (36.0-66.0); PLATELET COUNT, AUTOMATED 403 10^3/uL (150-450); WHITE BLOOD COUNT 10.5 10^3/uL (4.0-10.0)
[2023-04-21 15:42] LABS: CREATININE,RANDOM URINE 19.6 MG/DL
[2023-04-21 15:43] LABS: TOTAL PROTEIN,RANDOM URINE < 6.0 MG/DL (0.0-14.0)
[2023-04-21 15:44] LABS: COMPLEMENT C3 108.8 MG/DL (90.0-170.0); COMPLEMENT C4 24.9 MG/DL (12-36)
[2023-04-21 15:45] LABS: HEPATITIS B SURFACE ANTIBODY NEGATIVE (POSITIVE)
[2023-04-21 16:18] LABS: HEPATITIS C VIRUS ABY INDEX 0.16 INDEX (<0.8)
[2023-04-22 10:32] LABS: PTT LUPUS TYPE ANTICOAG SCREEN 0.86 (0-1.20)
[2023-04-24 15:10] LABS: COMPLEMENT TOTAL (CH50) 60 U/mL (>41); G6PD2 4.69 x10E6/uL (3.77-5.28); HEPATITIS B CORE ANTIBODY IGG Negative (Negative)
== END ==
LOC: M PLAIMG 12:59 → M PLALAB 12:59
PROVIDERS: ATTEND Internal Medicine
DX: M05.79 Rheumatoid arthritis with rheumatoid factor of multiple sites without organ or systems involvement (principal); Z11.59 Encounter for screening for other viral diseases; M19.071 Primary osteoarthritis, right ankle and foot; M19.072 Primary osteoarthritis, left ankle and foot; M19.041 Primary osteoarthritis, right hand; M19.042 Primary osteoarthritis, left hand; M85.432 Solitary bone cyst, left ulna and radius

== ENCOUNTER → 2023-05-12 | Outpatient (CLI) | payer MEDICARE, MEDICAID | LOC: M WHC 14:03 | PROVIDERS: ATTEND Nurse Practitioner Adult Health | DX: C50.912 Malignant neoplasm of unspecified site of left female breast (principal); R92.8 Other abnormal and inconclusive findings on diagnostic imaging of breast ==

== ENCOUNTER → 2023-05-12 | Outpatient (CLI) | payer MEDICARE, MEDICAID ==
[~2023-05-12] MED LIST changes: +LIDOCAINE 1% MDV 20ML VIAL As Ordered ONE
[2023-05-12 12:50] VITALS: TEMP 98.8
[2023-05-12 13:35] VITALS: BP 138/63; O2SAT 95
== END ==
LOC: M IRPRO 12:33
PROVIDERS: ATTEND Nurse Practitioner Adult Health
DX: R92.8 Other abnormal and inconclusive findings on diagnostic imaging of breast (principal); N63.22 Unspecified lump in the left breast, upper inner quadrant; C50.912 Malignant neoplasm of unspecified site of left female breast

== ENCOUNTER → 2023-07-14 | Outpatient (CLI) | payer MEDICARE, OTHER ==
[~2023-07-14] MED LIST changes: +CETI-24 PO; +D200CAP3 PO; +FLUO20CA22 PO; +FORT600S SQ; +IPRA0.00 INH; +IPRA3SP INH; +LEVOTAB10 PO; -LIDOCAINE 1% MDV 20ML VIAL As Ordered ONE; +MONT10TA97 PO; +OYST500T8 PO; +PRAV10TA3 PO; +SALI0.652; +SPIR12.9 INH; +SYMB16INH INH; +iron PO
== END ==
LOC: M ONCR 13:54
PROVIDERS: ATTEND General Practice
DX: C50.412 Malignant neoplasm of upper-outer quadrant of left female breast (principal); Z85.038 Personal history of other malignant neoplasm of large intestine; Z71.2 Person consulting for explanation of examination or test findings; Z79.51 Long term (current) use of inhaled steroids; Z79.899 Other long term (current) drug therapy; Z80.1 Family history of malignant neoplasm of trachea, bronchus and lung; Z80.41 Family history of malignant neoplasm of ovary; Z87.891 Personal history of nicotine dependence; Z90.710 Acquired absence of both cervix and uterus; Z98.51 Tubal ligation status; Z98.890 Other specified postprocedural states

== ENCOUNTER 2023-08-04 10:04 | Outpatient (RCR) | payer MEDICARE, OTHER | END 2023-08-05 | LOC: M ONCR 10:04 | PROVIDERS: ATTEND General Practice | DX: Z51.0 Encounter for antineoplastic radiation therapy (principal); C50.412 Malignant neoplasm of upper-outer quadrant of left female breast ==

== ENCOUNTER → 2023-08-13 | Outpatient (CLI) | payer MEDICARE, OTHER | LOC: M WHC 09:09 | PROVIDERS: ATTEND Internal Medicine Hematology & Oncology | DX: C50.912 Malignant neoplasm of unspecified site of left female breast (principal); Z79.899 Other long term (current) drug therapy; M81.0 Age-related osteoporosis without current pathological fracture; M85.89 Other specified disorders of bone density and structure, multiple sites ==

== ENCOUNTER 2023-08-24 13:00 | Outpatient (RCR) | payer MEDICARE, OTHER | END 2023-09-05 | LOC: M ONCR 13:00 | PROVIDERS: ATTEND General Practice | DX: Z51.0 Encounter for antineoplastic radiation therapy (principal); C50.412 Malignant neoplasm of upper-outer quadrant of left female breast ==

== ENCOUNTER → 2023-08-25 | Outpatient (CLI) | payer MEDICAID, MEDICARE, OTHER | LOC: M PLAIMG 11:15 | PROVIDERS: ATTEND Internal Medicine Pulmonary Disease | DX: J44.9 Chronic obstructive pulmonary disease, unspecified (principal); J43.9 Emphysema, unspecified; R91.1 Solitary pulmonary nodule ==

== ENCOUNTER → 2023-09-30 | Outpatient (CLI) | payer MEDICARE, OTHER ==
[2023-09-30 16:33] LABS: CALCIUM LEVEL 9.8 MG/DL (8.3-10.6)
[2023-09-30 16:38] LABS: TOTAL 25(OH) VITAMIN D 58.3 NG/ML (20.0-100.0)
== END ==
LOC: M PLALAB 13:24
PROVIDERS: ATTEND Internal Medicine Endocrinology, Diabetes & Metabolism
DX: M81.0 Age-related osteoporosis without current pathological fracture (principal); M05.89 Other rheumatoid arthritis with rheumatoid factor of multiple sites

== ENCOUNTER → 2023-10-14 | Outpatient (CLI) | payer MEDICARE, OTHER ==
[~2023-10-14] MED LIST changes: +ARIM1TAB5 PO; +PROHANCE 279.3MG/ML 15ML VIAL As Ordered ONE
== END ==
LOC: M RAD 12:36
PROVIDERS: ATTEND Nurse Practitioner Adult Health
DX: M19.012 Primary osteoarthritis, left shoulder (principal); M75.22 Bicipital tendinitis, left shoulder
CPT/HCPCS: 73223; A9576

== ENCOUNTER → 2023-11-16 | Outpatient (CLI) | payer MEDICARE, OTHER ==
[~2023-11-16] MED LIST changes: -PROHANCE 279.3MG/ML 15ML VIAL As Ordered ONE
== END ==
LOC: M PLALAB 14:32
PROVIDERS: ATTEND Internal Medicine Endocrinology, Diabetes & Metabolism
DX: M81.0 Age-related osteoporosis without current pathological fracture (principal)

== ENCOUNTER → 2023-11-16 | Outpatient (CLI) | payer MEDICARE, OTHER ==
[2023-11-16 15:52] LABS: BASO # 0.1 10^3/uL (0.0-0.2); BASO % 0.9 % (0.0-1.0); EOS # 0.1 10^3/uL (0.0-0.5); EOS % 0.7 % (0.0-3.0); HEMOGLOBIN 14.2 g/dl (12.0-15.5); LYMPH # 1.9 10^3/uL (1.5-5.0); MEAN CORPUSCULAR HEMOGLOBIN 29.8 pg (27.0-33.0); MEAN CORPUSCULAR HGB CONC 33.8 g/dl (32.0-36.5); MEAN CORPUSCULAR VOLUME 88.1 fl (80.0-96.0); MONO # 1.2 10^3/uL (0.0-0.8); MONO % 11.5 % (2.0-8.0); NEUTROPHILS # 7.2 10^3/uL (1.5-8.5); NEUTROPHILS % 68.6 % (36.0-66.0); PLATELET COUNT, AUTOMATED 365 10^3/uL (150-450); RED BLOOD COUNT 4.77 10^6/uL (4.00-5.40); WHITE BLOOD COUNT 10.5 10^3/uL (4.0-10.0)
[2023-11-16 16:05] LABS: ERYTHROCYTE SEDIMENTATION RATE 33 mm/hr (0-30)
[2023-11-16 16:52] LABS: ALBUMIN 3.8 G/DL (3.2-5.2); ALKALINE PHOSPHATASE 72 U/L (46-116); ALT/SGPT 42 U/L (7.0-40); AST/SGOT 27 U/L (<34); BILIRUBIN,TOTAL 0.5 MG/DL (0.3-1.2); BLOOD UREA NITROGEN 16 MG/DL (9-23); CALCIUM LEVEL 9.6 MG/DL (8.3-10.6); CARBON DIOXIDE LEVEL 26 MMOL/L (20-31); CHLORIDE LEVEL 103 MMOL/L (98-107); CREATININE FOR GFR 0.69 MG/DL (0.55-1.30); GLOMERULAR FILTRATION RATE > 60.0 (>45); GLUCOSE, FASTING 98 MG/DL (74-106); POTASSIUM SERUM 4.3 MMOL/L (3.5-5.1); SODIUM LEVEL 135 MMOL/L (136-145); TOTAL PROTEIN 7.2 G/DL (5.7-8.2)
== END ==
LOC: M PLALAB 14:27
PROVIDERS: ATTEND Internal Medicine Medical Oncology
DX: C50.919 Malignant neoplasm of unspecified site of unspecified female breast (principal)

== ENCOUNTER → 2023-11-16 | Outpatient (CLI) | payer MEDICARE, OTHER ==
[2023-11-16 15:44] LABS: BASO # 0.1 10^3/uL (0.0-0.2); EOS # 0.1 10^3/uL (0.0-0.5); EOS % 0.8 % (0.0-3.0); HEMATOCRIT 42.3 % (36.0-47.0); HEMOGLOBIN 14.2 g/dl (12.0-15.5); LYMPH # 1.8 10^3/uL (1.5-5.0); LYMPH % 17.7 % (24.0-44.0); MEAN CORPUSCULAR HEMOGLOBIN 29.7 pg (27.0-33.0); MEAN CORPUSCULAR HGB CONC 33.6 g/dl (32.0-36.5); MEAN CORPUSCULAR VOLUME 88.5 fl (80.0-96.0); MONO # 1.2 10^3/uL (0.0-0.8); MONO % 11.2 % (2.0-8.0); NEUTROPHILS # 7.1 10^3/uL (1.5-8.5); NEUTROPHILS % 68.8 % (36.0-66.0); PLATELET COUNT, AUTOMATED 368 10^3/uL (150-450); RED BLOOD COUNT 4.78 10^6/uL (4.00-5.40); WHITE BLOOD COUNT 10.4 10^3/uL (4.0-10.0)
[2023-11-16 15:48] LABS: ERYTHROCYTE SEDIMENTATION RATE 32 mm/hr (0-30)
[2023-11-16 16:03] LABS: C REACTIVE PROTEIN QUANTITATIV < 0.40 MG/DL (<1.0)
[2023-11-16 16:04] LABS: ALBUMIN 3.8 G/DL (3.2-5.2); ALKALINE PHOSPHATASE 72 U/L (46-116); ALT/SGPT 42 U/L (7.0-40); AST/SGOT 27 U/L (<34); BILIRUBIN,DIRECT 0.1 MG/DL (<0.4); BILIRUBIN,TOTAL 0.5 MG/DL (0.3-1.2); BLOOD UREA NITROGEN 15 MG/DL (9-23); CALCIUM LEVEL 9.5 MG/DL (8.3-10.6); CARBON DIOXIDE LEVEL 27 MMOL/L (20-31); CHLORIDE LEVEL 102 MMOL/L (98-107); CREATININE FOR GFR 0.68 MG/DL (0.55-1.30); GLOMERULAR FILTRATION RATE > 60.0 (>45); GLUCOSE, FASTING 98 MG/DL (74-106); POTASSIUM SERUM 4.3 MMOL/L (3.5-5.1); SODIUM LEVEL 136 MMOL/L (136-145); TOTAL PROTEIN 7.2 G/DL (5.7-8.2)
== END ==
LOC: M PLALAB 14:34
PROVIDERS: ATTEND Internal Medicine
DX: M05.79 Rheumatoid arthritis with rheumatoid factor of multiple sites without organ or systems involvement (principal)

== ENCOUNTER → 2023-12-23 | Outpatient (CLI) | payer MEDICARE, OTHER ==
[~2023-12-23] MED LIST changes: +CALC-364
== END ==
LOC: M PLALAB 13:15
PROVIDERS: ATTEND Nurse Practitioner Family
DX: M81.0 Age-related osteoporosis without current pathological fracture (principal)

== ENCOUNTER → 2024-01-04 | Outpatient (CLI) | payer MEDICARE, OTHER ==
[2024-01-04 15:53] LABS: BASO # 0.1 10^3/uL (0.0-0.2); BASO % 1.3 % (0.0-1.0); EOS # 0.1 10^3/uL (0.0-0.5); EOS % 0.7 % (0.0-3.0); HEMATOCRIT 40.5 % (36.0-47.0); HEMOGLOBIN 13.2 g/dl (12.0-15.5); LYMPH # 1.8 10^3/uL (1.5-5.0); LYMPH % 17.4 % (24.0-44.0); MEAN CORPUSCULAR HEMOGLOBIN 29.2 pg (27.0-33.0); MEAN CORPUSCULAR HGB CONC 32.6 g/dl (32.0-36.5); MEAN CORPUSCULAR VOLUME 89.6 fl (80.0-96.0); MONO # 1.1 10^3/uL (0.0-0.8); MONO % 10.8 % (2.0-8.0); NEUTROPHILS # 7.2 10^3/uL (1.5-8.5); NEUTROPHILS % 68.9 % (36.0-66.0); PLATELET COUNT, AUTOMATED 350 10^3/uL (150-450); RED BLOOD COUNT 4.52 10^6/uL (4.00-5.40); WHITE BLOOD COUNT 10.5 10^3/uL (4.0-10.0)
[2024-01-04 16:04] LABS: C REACTIVE PROTEIN QUANTITATIV < 0.40 MG/DL (<1.0)
[2024-01-04 16:05] LABS: ALBUMIN 3.2 G/DL (3.2-5.2); ALKALINE PHOSPHATASE 59 U/L (46-116); ALT/SGPT 42 U/L (7.0-40); AST/SGOT 28 U/L (<34); BILIRUBIN,DIRECT 0.2 MG/DL (<0.4); BILIRUBIN,TOTAL 0.6 MG/DL (0.3-1.2); BLOOD UREA NITROGEN 15 MG/DL (9-23); CALCIUM LEVEL 9.7 MG/DL (8.3-10.6); CARBON DIOXIDE LEVEL 29 MMOL/L (20-31); CHLORIDE LEVEL 102 MMOL/L (98-107); CREATININE FOR GFR 0.64 MG/DL (0.55-1.30); GLOMERULAR FILTRATION RATE > 60.0 (>45); GLUCOSE, FASTING 142 MG/DL (74-106); POTASSIUM SERUM 4.5 MMOL/L (3.5-5.1); SODIUM LEVEL 139 MMOL/L (136-145)
[2024-01-04 16:07] LABS: ERYTHROCYTE SEDIMENTATION RATE 22 mm/hr (0-30)
== END ==
LOC: M PLALAB 12:27
PROVIDERS: ATTEND Internal Medicine
DX: M05.79 Rheumatoid arthritis with rheumatoid factor of multiple sites without organ or systems involvement (principal); M81.0 Age-related osteoporosis without current pathological fracture

== ENCOUNTER → 2024-01-04 | Outpatient (CLI) | payer MEDICARE, OTHER | LOC: M PLALAB 12:29 | PROVIDERS: ATTEND Internal Medicine Endocrinology, Diabetes & Metabolism | DX: M81.0 Age-related osteoporosis without current pathological fracture (principal) ==

== ENCOUNTER → 2024-02-25 | Outpatient (CLI) | payer MEDICARE, OTHER ==
[~2024-02-25] MED LIST changes: +FLUO-365 PO; -FLUO20CA22 PO
== END ==
LOC: M ONCR 14:03
PROVIDERS: ATTEND General Practice
DX: Z08 Encounter for follow-up examination after completed treatment for malignant neoplasm (principal); Z85.3 Personal history of malignant neoplasm of breast; M79.622 Pain in left upper arm; Z92.3 Personal history of irradiation; Z79.811 Long term (current) use of aromatase inhibitors; Z87.891 Personal history of nicotine dependence; Z79.51 Long term (current) use of inhaled steroids; Z79.899 Other long term (current) drug therapy; Z71.2 Person consulting for explanation of examination or test findings; Z98.890 Other specified postprocedural states
CPT/HCPCS: 36415; 82310; G0463

== ENCOUNTER → 2024-02-25 | Outpatient (CLI) | payer MEDICARE | LOC: M PLALAB 11:20 | PROVIDERS: ATTEND Internal Medicine Endocrinology, Diabetes & Metabolism | DX: M81.0 Age-related osteoporosis without current pathological fracture (principal) ==

== ENCOUNTER → 2024-04-03 | Outpatient (CLI) | payer MEDICARE, OTHER ==
[2024-04-03 15:56] LABS: BASO # 0.1 10^3/uL (0.0-0.2); BASO % 1.1 % (0.0-1.0); EOS # 0.2 10^3/uL (0.0-0.5); EOS % 1.4 % (0.0-3.0); HEMATOCRIT 43.6 % (36.0-47.0); HEMOGLOBIN 14.4 g/dl (12.0-15.5); LYMPH # 2.1 10^3/uL (1.5-5.0); LYMPH % 15.7 % (24.0-44.0); MEAN CORPUSCULAR HEMOGLOBIN 29.8 pg (27.0-33.0); MEAN CORPUSCULAR VOLUME 90.1 fl (80.0-96.0); MONO # 1.5 10^3/uL (0.0-0.8); MONO % 11.7 % (2.0-8.0); NEUTROPHILS # 9.2 10^3/uL (1.5-8.5); NEUTROPHILS % 69.6 % (36.0-66.0); PLATELET COUNT, AUTOMATED 357 10^3/uL (150-450); RED BLOOD COUNT 4.84 10^6/uL (4.00-5.40); WHITE BLOOD COUNT 13.2 10^3/uL (4.0-10.0)
[2024-04-03 16:30] LABS: IRON (FE) 61 UG/DL (50-170)
[2024-04-03 16:31] LABS: ALBUMIN 3.8 G/DL (3.2-5.2); ALKALINE PHOSPHATASE 66 U/L (46-116); ALT/SGPT 46 U/L (7.0-40); AST/SGOT 31 U/L (<34); BILIRUBIN,TOTAL 0.5 MG/DL (0.3-1.2); BLOOD UREA NITROGEN 27 MG/DL (9-23); CALCIUM LEVEL 10.2 MG/DL (8.3-10.6); CARBON DIOXIDE LEVEL 26 MMOL/L (20-31); CHLORIDE LEVEL 103 MMOL/L (98-107); CREATININE FOR GFR 0.66 MG/DL (0.55-1.30); GLOMERULAR FILTRATION RATE > 60.0 (>45); GLUCOSE, FASTING 100 MG/DL (74-106); POTASSIUM SERUM 4.8 MMOL/L (3.5-5.1); SODIUM LEVEL 136 MMOL/L (136-145); TOTAL IRON BINDING CAPACITY 305 UG/DL (250-425); TOTAL PROTEIN 7.5 G/DL (5.7-8.2)
[2024-04-03 16:33] LABS: FERRITIN 113.9 NG/ML (7.3-270.7)
[2024-04-03 16:44] LABS: HEPATITIS B SURFACE ANTIGEN NEGATIVE (NEGATIVE)
[2024-04-03 16:51] LABS: CA15-3 ANTIGEN 10.5 U/ML (<32.4)
[2024-04-03 17:03] LABS: HEPATITIS B CORE ANTIBODY IGM NEGATIVE (NEGATIVE)
[2024-04-03 17:05] LABS: HEPATITIS C VIRUS ABY INDEX < 0.02 INDEX (<0.8)
== END ==
LOC: M PLALAB 14:21
PROVIDERS: ATTEND Internal Medicine Medical Oncology
DX: Z85.3 Personal history of malignant neoplasm of breast (principal); R74.01 Elevation of levels of liver transaminase levels

== ENCOUNTER → 2024-04-03 | Outpatient (CLI) | payer MEDICARE, OTHER ==
[2024-04-03 16:26] LABS: CALCIUM LEVEL 10.2 MG/DL (8.3-10.6)
[2024-04-03 16:31] LABS: TOTAL 25(OH) VITAMIN D 39.8 NG/ML (20.0-100.0)
== END ==
LOC: M PLALAB 14:23
PROVIDERS: ATTEND Internal Medicine Endocrinology, Diabetes & Metabolism
DX: M81.0 Age-related osteoporosis without current pathological fracture (principal)

== ENCOUNTER → 2024-04-05 | Outpatient (CLI) | payer MEDICARE, OTHER ==
[~2024-04-05] MED LIST changes: +FLUTISP; +IRON27TA2 PO; +ROMO210S SQ
== END ==
LOC: M WHC 11:15
PROVIDERS: ATTEND Radiology Radiation Oncology
DX: R59.0 Localized enlarged lymph nodes (principal); Z98.890 Other specified postprocedural states; Z85.3 Personal history of malignant neoplasm of breast
CPT/HCPCS: 76882; 77066; G0279

== ENCOUNTER 2024-04-20 11:19 | Day surgery (SDC) | payer MEDICARE, OTHER ==
[~2024-04-20] VITALS: Ht 154.9 cm; Wt 53.1 kg
[2024-04-20] MEDS: NS 1,000 ML IV ONE (12:25)
[2024-04-20] MEDS ORDERED: propofoL 200 MG/20 ML VIAL As Ordered ONE (12:34)
[2024-04-20 13:20] VITALS: BP 119/60; O2SAT 94
== END 2024-04-20 13:27 | disposition home or self-care (01) ==
LOC: M OPP 11:19
PROVIDERS: ATTEND Surgery
DX: Z12.11 Encounter for screening for malignant neoplasm of colon (principal); Z85.038 Personal history of other malignant neoplasm of large intestine; D12.6 Benign neoplasm of colon, unspecified; D50.9 Iron deficiency anemia, unspecified; J45.909 Unspecified asthma, uncomplicated; Z90.49 Acquired absence of other specified parts of digestive tract; Z87.891 Personal history of nicotine dependence; Z79.02 Long term (current) use of antithrombotics/antiplatelets; Z79.51 Long term (current) use of inhaled steroids; Z79.83 Long term (current) use of bisphosphonates; Z79.811 Long term (current) use of aromatase inhibitors; Z79.899 Other long term (current) drug therapy

== ENCOUNTER → 2024-04-21 | Outpatient (CLI) | payer MEDICARE, OTHER ==
[2024-04-21 14:53] LABS: BASO # 0.1 10^3/uL (0.0-0.2); BASO % 0.9 % (0.0-1.0); EOS # 0.2 10^3/uL (0.0-0.5); HEMATOCRIT 42.6 % (36.0-47.0); HEMOGLOBIN 14.2 g/dl (12.0-15.5); LYMPH # 2.1 10^3/uL (1.5-5.0); LYMPH % 19.7 % (24.0-44.0); MEAN CORPUSCULAR HGB CONC 33.3 g/dl (32.0-36.5); MEAN CORPUSCULAR VOLUME 89.9 fl (80.0-96.0); MONO # 1.5 10^3/uL (0.0-0.8); NEUTROPHILS # 6.8 10^3/uL (1.5-8.5); NEUTROPHILS % 62.8 % (36.0-66.0); PLATELET COUNT, AUTOMATED 380 10^3/uL (150-450); RED BLOOD COUNT 4.74 10^6/uL (4.00-5.40); WHITE BLOOD COUNT 10.8 10^3/uL (4.0-10.0)
[2024-04-21 15:19] LABS: IRON (FE) 41 UG/DL (50-170); PERCENT SATURATION 14.3 % (13.2-45.0); TOTAL IRON BINDING CAPACITY 286 UG/DL (250-425)
[2024-04-21 15:20] LABS: ALBUMIN 3.6 G/DL (3.2-5.2); ALKALINE PHOSPHATASE 60 U/L (46-116); ALT/SGPT 39 U/L (7.0-40); AST/SGOT 28 U/L (<34); BILIRUBIN,TOTAL 0.5 MG/DL (0.3-1.2); BLOOD UREA NITROGEN 11 MG/DL (9-23); CALCIUM LEVEL 10.1 MG/DL (8.3-10.6); CARBON DIOXIDE LEVEL 25 MMOL/L (20-31); CHLORIDE LEVEL 105 MMOL/L (98-107); CHOLESTEROL LEVEL 237 MG/DL (<200); CREATININE FOR GFR 0.67 MG/DL (0.55-1.30); GLOMERULAR FILTRATION RATE > 60.0 (>45); GLUCOSE, FASTING 96 MG/DL (74-106); HDL CHOLESTEROL 118.2 MG/DL (>40); NON-HDL-C 118.8 MG/DL; POTASSIUM SERUM 3.8 MMOL/L (3.5-5.1); SODIUM LEVEL 138 MMOL/L (136-145); TOTAL PROTEIN 7.3 G/DL (5.7-8.2); TRIGLYCERIDES LEVEL 54 MG/DL (<150)
[2024-04-21 15:22] LABS: TOTAL 25(OH) VITAMIN D 46.6 NG/ML (20.0-100.0)
[2024-04-21 15:25] LABS: FREE T4 1.56 NG/DL (0.89-1.76)
== END ==
LOC: M PLALAB 12:19
PROVIDERS: ATTEND Nurse Practitioner Adult Health
DX: I10 Essential (primary) hypertension (principal); E78.2 Mixed hyperlipidemia; D50.9 Iron deficiency anemia, unspecified; Z79.899 Other long term (current) drug therapy

== ENCOUNTER → 2024-05-31 | Outpatient (CLI) | payer MEDICARE | LOC: M PLALAB 14:27 | PROVIDERS: ATTEND Nurse Practitioner Family | DX: M81.0 Age-related osteoporosis without current pathological fracture (principal) ==

== ENCOUNTER → 2024-06-28 | Outpatient (CLI) | payer MEDICARE ==
[2024-06-28 16:28] LABS: TOTAL 25(OH) VITAMIN D 70.5 NG/ML (20.0-100.0)
[2024-06-28 16:31] LABS: BLOOD UREA NITROGEN 16 MG/DL (9-23); CALCIUM LEVEL 11.2 MG/DL (8.3-10.6); CARBON DIOXIDE LEVEL 27 MMOL/L (20-31); CHLORIDE LEVEL 106 MMOL/L (98-107); CREATININE FOR GFR 0.69 MG/DL (0.55-1.30); GLOMERULAR FILTRATION RATE > 60.0 (>45); GLUCOSE, FASTING 108 MG/DL (74-106); POTASSIUM SERUM 4.9 MMOL/L (3.5-5.1); SODIUM LEVEL 138 MMOL/L (136-145)
== END ==
LOC: M PLALAB 13:56
PROVIDERS: ATTEND Nurse Practitioner Family
DX: M81.0 Age-related osteoporosis without current pathological fracture (principal)

== ENCOUNTER → 2024-06-28 | Outpatient (CLI) | payer MEDICARE ==
[2024-06-28 15:42] LABS: BASO # 0.1 10^3/uL (0.0-0.2); EOS # 0.1 10^3/uL (0.0-0.5); EOS % 0.8 % (0.0-3.0); HEMATOCRIT 41.9 % (36.0-47.0); HEMOGLOBIN 14.4 g/dl (12.0-15.5); LYMPH # 1.8 10^3/uL (1.5-5.0); LYMPH % 16.7 % (24.0-44.0); MEAN CORPUSCULAR HEMOGLOBIN 30.8 pg (27.0-33.0); MEAN CORPUSCULAR HGB CONC 34.4 g/dl (32.0-36.5); MEAN CORPUSCULAR VOLUME 89.5 fl (80.0-96.0); MONO # 1.2 10^3/uL (0.0-0.8); MONO % 11.7 % (2.0-8.0); NEUTROPHILS # 7.3 10^3/uL (1.5-8.5); NEUTROPHILS % 69.4 % (36.0-66.0); PLATELET COUNT, AUTOMATED 338 10^3/uL (150-450); RED BLOOD COUNT 4.68 10^6/uL (4.00-5.40); WHITE BLOOD COUNT 10.5 10^3/uL (4.0-10.0)
[2024-06-28 16:27] LABS: FERRITIN 96.1 NG/ML (7.3-270.7); PERCENT SATURATION 28.6 % (13.2-45.0)
== END ==
LOC: M PLALAB 13:54
PROVIDERS: ATTEND Family Medicine
DX: D50.9 Iron deficiency anemia, unspecified (principal)

== ENCOUNTER → 2024-06-28 | Outpatient (CLI) | payer MEDICARE ==
[2024-06-28 15:43] LABS: BASO # 0.1 10^3/uL (0.0-0.2); EOS # 0.1 10^3/uL (0.0-0.5); EOS % 0.8 % (0.0-3.0); HEMATOCRIT 41.9 % (36.0-47.0); LYMPH # 1.9 10^3/uL (1.5-5.0); MEAN CORPUSCULAR HEMOGLOBIN 29.5 pg (27.0-33.0); MEAN CORPUSCULAR HGB CONC 33.4 g/dl (32.0-36.5); MEAN CORPUSCULAR VOLUME 88.4 fl (80.0-96.0); MONO # 1.1 10^3/uL (0.0-0.8); MONO % 10.3 % (2.0-8.0); NEUTROPHILS # 7.3 10^3/uL (1.5-8.5); NEUTROPHILS % 69.3 % (36.0-66.0); PLATELET COUNT, AUTOMATED 349 10^3/uL (150-450); RED BLOOD COUNT 4.74 10^6/uL (4.00-5.40); WHITE BLOOD COUNT 10.6 10^3/uL (4.0-10.0)
[2024-06-28 17:34] LABS: ALBUMIN 4.2 G/DL (3.2-5.2); ALKALINE PHOSPHATASE 61 U/L (46-116); ALT/SGPT 30 U/L (7.0-40); AST/SGOT 22 U/L (<34); BILIRUBIN,TOTAL 0.6 MG/DL (0.3-1.2); BLOOD UREA NITROGEN 17 MG/DL (9-23); CA15-3 ANTIGEN 12.5 U/ML (<32.4); CALCIUM LEVEL 11.3 MG/DL (8.3-10.6); CARBON DIOXIDE LEVEL 28 MMOL/L (20-31); CHLORIDE LEVEL 103 MMOL/L (98-107); CREATININE FOR GFR 0.67 MG/DL (0.55-1.30); GLOMERULAR FILTRATION RATE > 60.0 (>45); GLUCOSE, FASTING 108 MG/DL (74-106); POTASSIUM SERUM 4.2 MMOL/L (3.5-5.1); SODIUM LEVEL 137 MMOL/L (136-145); TOTAL PROTEIN 7.7 G/DL (5.7-8.2)
== END ==
LOC: M PLALAB 14:03
PROVIDERS: ATTEND Internal Medicine Medical Oncology
DX: C50.919 Malignant neoplasm of unspecified site of unspecified female breast (principal); D50.9 Iron deficiency anemia, unspecified; M81.0 Age-related osteoporosis without current pathological fracture

== ENCOUNTER → 2024-07-05 | Outpatient (CLI) | payer MEDICARE ==
[2024-07-05 13:52] LABS: BLOOD UREA NITROGEN 18 MG/DL (9-23); CALCIUM LEVEL 9.9 MG/DL (8.3-10.6); CARBON DIOXIDE LEVEL 26 MMOL/L (20-31); CHLORIDE LEVEL 102 MMOL/L (98-107); CREATININE FOR GFR 0.63 MG/DL (0.55-1.30); GLOMERULAR FILTRATION RATE > 60.0 (>45); GLUCOSE, FASTING 100 MG/DL (74-106); POTASSIUM SERUM 4.4 MMOL/L (3.5-5.1); SODIUM LEVEL 135 MMOL/L (136-145)
== END ==
LOC: M PLALAB 11:26
PROVIDERS: ATTEND Internal Medicine Endocrinology, Diabetes & Metabolism
DX: E83.52 Hypercalcemia (principal)

== ENCOUNTER → 2024-07-31 | Outpatient (CLI) | payer MEDICARE, OTHER ==
[~2024-07-31] MED LIST changes: +CYMB1CAP5 PO
== END ==
LOC: M PLALAB 14:26
PROVIDERS: ATTEND Nurse Practitioner Family
DX: M81.0 Age-related osteoporosis without current pathological fracture (principal)

== ENCOUNTER → 2024-11-13 | Outpatient (CLI) | payer MEDICARE, OTHER ==
[2024-11-13 17:37] LABS: BASO # 0.1 10^3/uL (0.0-0.2); BASO % 1.1 % (0.0-1.0); EOS # 0.2 10^3/uL (0.0-0.5); EOS % 1.4 % (0.0-3.0); HEMATOCRIT 42.5 % (36.0-47.0); HEMOGLOBIN 13.9 g/dl (12.0-15.5); LYMPH # 1.9 10^3/uL (1.5-5.0); LYMPH % 17.4 % (24.0-44.0); MEAN CORPUSCULAR HEMOGLOBIN 29.3 pg (27.0-33.0); MEAN CORPUSCULAR HGB CONC 32.7 g/dl (32.0-36.5); MEAN CORPUSCULAR VOLUME 89.7 fl (80.0-96.0); MONO # 1.2 10^3/uL (0.0-0.8); MONO % 11.1 % (2.0-8.0); NEUTROPHILS # 7.5 10^3/uL (1.5-8.5); NEUTROPHILS % 68.4 % (36.0-66.0); PLATELET COUNT, AUTOMATED 400 10^3/uL (150-450); RED BLOOD COUNT 4.74 10^6/uL (4.00-5.40); WHITE BLOOD COUNT 10.9 10^3/uL (4.0-10.0)
[2024-11-13 17:38] LABS: ALBUMIN 3.8 G/DL (3.2-5.2); ALKALINE PHOSPHATASE 57 U/L (35-104); ALT/SGPT 32 U/L (7.0-40); AST/SGOT 26 U/L (<34); BILIRUBIN,TOTAL 0.4 MG/DL (0.3-1.2); BLOOD UREA NITROGEN 24 MG/DL (9-23); CALCIUM LEVEL 10.2 MG/DL (8.3-10.6); CARBON DIOXIDE LEVEL 27 MMOL/L (20-31); CHLORIDE LEVEL 103 MMOL/L (98-107); CREATININE FOR GFR 0.67 MG/DL (0.55-1.30); GLOMERULAR FILTRATION RATE > 60.0 (>45); GLUCOSE, FASTING 110 MG/DL (74-106); POTASSIUM SERUM 4.4 MMOL/L (3.5-5.1); SODIUM LEVEL 140 MMOL/L (136-145); TOTAL PROTEIN 7.5 G/DL (5.7-8.2)
== END ==
LOC: M PLALAB 14:34
PROVIDERS: ATTEND Internal Medicine Hematology & Oncology
DX: C50.919 Malignant neoplasm of unspecified site of unspecified female breast (principal); M81.0 Age-related osteoporosis without current pathological fracture

== ENCOUNTER → 2024-11-13 | Outpatient (CLI) | payer MEDICARE, OTHER ==
[2024-11-13 17:38] LABS: BLOOD UREA NITROGEN 23 MG/DL (9-23); CALCIUM LEVEL 10.3 MG/DL (8.3-10.6); CARBON DIOXIDE LEVEL 27 MMOL/L (20-31); CHLORIDE LEVEL 102 MMOL/L (98-107); CREATININE FOR GFR 0.68 MG/DL (0.55-1.30); GLOMERULAR FILTRATION RATE > 60.0 (>45); GLUCOSE, FASTING 110 MG/DL (74-106); POTASSIUM SERUM 4.3 MMOL/L (3.5-5.1); SODIUM LEVEL 140 MMOL/L (136-145)
[2024-11-13 17:41] LABS: TOTAL 25(OH) VITAMIN D 80.9 NG/ML (20.0-100.0)
== END ==
LOC: M PLALAB 14:32
PROVIDERS: ATTEND Nurse Practitioner Family
DX: M81.0 Age-related osteoporosis without current pathological fracture (principal)

== ENCOUNTER → 2024-12-13 | Outpatient (CLI) | payer MEDICARE, OTHER | LOC: M ONCR 10:38 | PROVIDERS: ATTEND General Practice | DX: Z08 Encounter for follow-up examination after completed treatment for malignant neoplasm (principal); Z85.3 Personal history of malignant neoplasm of breast; Z98.890 Other specified postprocedural states; Z92.3 Personal history of irradiation; Z79.811 Long term (current) use of aromatase inhibitors; Z79.51 Long term (current) use of inhaled steroids; Z79.899 Other long term (current) drug therapy; Z87.891 Personal history of nicotine dependence ==

== ENCOUNTER → 2024-12-21 | Outpatient (CLI) | payer MEDICARE ==
[2024-12-21 19:47] LABS: BLOOD UREA NITROGEN 19 MG/DL (9-23); CALCIUM LEVEL 9.4 MG/DL (8.3-10.6); CARBON DIOXIDE LEVEL 27 MMOL/L (20-31); CHLORIDE LEVEL 100 MMOL/L (98-107); CREATININE FOR GFR 0.66 MG/DL (0.55-1.30); GLOMERULAR FILTRATION RATE > 90.0 (>45); GLUCOSE, FASTING 108 MG/DL (74-106); SODIUM LEVEL 138 MMOL/L (136-145)
== END ==
LOC: M PLALAB 14:30
PROVIDERS: ATTEND Nurse Practitioner Family
DX: M81.0 Age-related osteoporosis without current pathological fracture (principal)

== ENCOUNTER → 2025-01-03 | Outpatient (CLI) | payer MEDICARE, OTHER | LOC: M WHC 11:16 | PROVIDERS: ATTEND Nurse Practitioner Family | DX: M81.0 Age-related osteoporosis without current pathological fracture (principal) ==

== ENCOUNTER → 2025-01-18 | Outpatient (CLI) | payer MEDICARE, OTHER ==
[2025-01-18 18:50] LABS: CALCIUM LEVEL 10.1 MG/DL (8.3-10.6); CREATININE FOR GFR 0.75 MG/DL (0.55-1.30); GLOMERULAR FILTRATION RATE 87.2 (>45); POTASSIUM SERUM 4.4 MMOL/L (3.5-5.1)
[2025-01-18 18:53] LABS: TOTAL 25(OH) VITAMIN D 84.5 NG/ML (20.0-100.0)
== END ==
LOC: M PLALAB 14:34
PROVIDERS: ATTEND Nurse Practitioner Family
DX: M81.0 Age-related osteoporosis without current pathological fracture (principal)

== ENCOUNTER → 2025-05-04 | Outpatient (CLI) | payer MEDICARE, OTHER ==
[~2025-05-04] MED LIST changes: -PRAV10TA3 PO; +PRAV10TA43 PO
[2025-05-04 10:50] LABS: BASO # 0.2 10^3/uL (0.0-0.2); BASO % 1.4 % (0.0-1.0); EOS # 0.3 10^3/uL (0.0-0.5); EOS % 2.6 % (0.0-3.0); LYMPH # 2.8 10^3/uL (1.5-5.0); LYMPH % 25.9 % (24.0-44.0); MONO # 1.6 10^3/uL (0.0-0.8); MONO % 14.7 % (2.0-8.0); NEUTROPHILS # 5.9 10^3/uL (1.5-8.5); NEUTROPHILS % 54.5 % (36.0-66.0); PLATELET COUNT, AUTOMATED 419 10^3/uL (150-450)
[2025-05-04 11:16] LABS: ALT/SGPT 36.0 U/L (7.0-40); AST/SGOT 36.0 U/L (<34); CALCIUM LEVEL 10.5 MG/DL (8.3-10.6); CARBON DIOXIDE LEVEL 28.0 MMOL/L (20-31); CHLORIDE LEVEL 100.0 MMOL/L (98-107); CREATININE FOR GFR 0.74 MG/DL (0.55-1.30); GLOMERULAR FILTRATION RATE 88.1 (>45); POTASSIUM SERUM 4.0 MMOL/L (3.5-5.1); SODIUM LEVEL 140.0 MMOL/L (136-145)
== END ==
LOC: M PLALAB 08:42
PROVIDERS: ATTEND Internal Medicine Medical Oncology
DX: C50.912 Malignant neoplasm of unspecified site of left female breast (principal); M81.0 Age-related osteoporosis without current pathological fracture

== ENCOUNTER → 2025-05-04 | Outpatient (CLI) | payer MEDICARE, OTHER ==
[2025-05-04 11:15] LABS: CALCIUM LEVEL 10.5 MG/DL (8.3-10.6); CARBON DIOXIDE LEVEL 29.0 MMOL/L (20-31); CHLORIDE LEVEL 100.0 MMOL/L (98-107); CREATININE FOR GFR 0.73 MG/DL (0.55-1.30); GLOMERULAR FILTRATION RATE 89.5 (>45); POTASSIUM SERUM 4.1 MMOL/L (3.5-5.1); SODIUM LEVEL 141.0 MMOL/L (136-145)
== END ==
LOC: M PLALAB 08:44
PROVIDERS: ATTEND Nurse Practitioner Family
DX: M81.0 Age-related osteoporosis without current pathological fracture (principal)

== ENCOUNTER → 2025-05-22 | Outpatient (CLI) | payer MEDICARE, OTHER | LOC: M WHC 13:46 | PROVIDERS: ATTEND General Practice | DX: Z00.8 Encounter for other general examination (principal); Z85.3 Personal history of malignant neoplasm of breast; Z98.890 Other specified postprocedural states; R92.323 Mammographic fibroglandular density, bilateral breasts | CPT/HCPCS: 77066; G0279 ==

== ENCOUNTER → 2025-07-27 | Outpatient (CLI) | payer MEDICARE, OTHER ==
[2025-07-27 16:53] LABS: CALCIUM LEVEL 10.2 MG/DL (8.3-10.6); CARBON DIOXIDE LEVEL 28 MMOL/L (20-31); CHLORIDE LEVEL 99 MMOL/L (98-107); CREATININE FOR GFR 0.71 MG/DL (0.55-1.30); GLOMERULAR FILTRATION RATE > 90.0 (>45); POTASSIUM SERUM 4.4 MMOL/L (3.5-5.1); SODIUM LEVEL 136 MMOL/L (136-145)
[2025-07-27 16:56] LABS: TOTAL 25(OH) VITAMIN D 63.1 NG/ML (20.0-100.0)
== END ==
LOC: M PLALAB 13:56
PROVIDERS: ATTEND Nurse Practitioner Family
DX: M81.0 Age-related osteoporosis without current pathological fracture (principal)